=== PATIENT | male | born 1955 | race American Indian/Alaskan Native ===

== ENCOUNTER 2019-05-24 22:59 | Emergency (ER) | payer OTHER ==
[2019-05-25 00:33] LABS: Basophils # (Auto) 0.1 K/mm3 (0.0-0.1); Eosinophils # (Auto) 0.1 K/mm3 (0.0-0.4); Eosinophils % (Auto) 1.4 % (0.0-4.3); Hematocrit 39.6 % (35.5-45.6); Hemoglobin 13.2 gm/dl (11.8-15.2); Lymphocytes # (Auto) 1.5 K/mm3 (1.2-5.4); Lymphocytes % (Auto) 24.1 % (13.4-35.0); Mean Corpuscular HGB Conc 33 % (32-34); Mean Corpuscular Volume 93 fl (84-94); Monocytes # (Auto) 0.4 K/mm3 (0.0-0.8); Monocytes % (Auto) 7.4 % (0.0-7.3); Platelet Count 229 K/mm3 (140-440); Red Blood Count 4.28 M/mm3 (3.65-5.03); Red Cell Distribution Width 13.1 % (13.2-15.2)
[2019-05-25 00:53] LABS: Alanine Aminotransferase 8 units/L (7-56); BUN/Creatinine Ratio 14; Blood Urea Nitrogen 13 mg/dL (9-20); Calcium 9.2 mg/dL (8.4-10.2); Hemolysis Index 28
--- NOTE | 2019-05-25 01:14 | Emergency Department Report ---
HPI - General Chief Complaint: Dizziness Time Seen by Provider: 05/25/19 00:54 - HPI HPI: 63-year-old -[place] male presents to the emergency department with complaint of some abdominal pain, groin pain, difficulty with urination and bowel movements. The patient says that the difficulty urinating has been going on for the past 1-2 days and he says that he last urinated about 6 AM yesterday morning, . He says that he had a bowel movement earlier in the afternoon but it was not a satisfactory one. Patient complains of some swelling or distention towards the lower abdomen and groin that he says he has noticed in the past but it has gotten much worse over the past 24 hours. He has a past medical history of enlarged prostate and migraine headaches. He does not currently have a primary care physician. He has not taken anything for his symptoms prior to arrival. ED Past Medical Hx - Past Medical History Previous Medical History?: Yes Hx CVA: No Hx Congestive Heart Failure: No Hx Diabetes: No Hx Headaches / Migraines: Yes Hx Asthma: No Hx COPD: No Additional medical history: enlarged prostate, complex migraines without headache - Surgical History Past Surgical History?: Yes Additional Surgical History: Right Inguinal Hernia - Social History Smoking Status: Never Smoker Substance Use Type: None - Medications Home Medications: Home Medications Medication Instructions Recorded Confirmed Last Taken Type Aspirin EC [Aspirin Enteric Coated 81 mg PO QDAY 11/07/14 11/07/14 Unknown History TAB] Tamsulosin [Flomax] 0.4 mg PO QDAY #30 capsule 11/07/14 Unknown Rx Docusate Sodium [Colace] 100 mg PO BID PRN #30 capsule 02/07/15 Unknown Rx Magnesium Citrate [Citrate of 300 ml PO ONCE PRN #1 bottle 02/07/15 Unknown Rx Magnesia] SUMAtriptan SUCCINATE [Imitrex] 100 mg PO PRN PRN #10 tablet 02/07/15 Unknown Rx Ciprofloxacin HCl [Ciprofloxacin 500 mg PO Q12HR #14 tab 05/25/19 Unknown Rx TAB] ED Review of Systems ROS: Stated complaint: DIZZINESS TINGLING IN FINGERS BLADDER & BOWEL PA Other details as noted in HPI Comment: All other systems reviewed and negative Constitutional: denies: chills, fever Eyes: denies: eye pain, vision change ENT: denies: ear pain, throat pain Respiratory: denies: cough, shortness of breath Cardiovascular: denies: chest pain, palpitations Gastrointestinal: abdominal pain, constipation. denies: nausea, vomiting Genitourinary: other (difficulty urinating). denies: discharge Musculoskeletal: denies: back pain, arthralgia Skin: denies: rash, lesions Neurological: denies: headache, weakness Physical Exam - Physical Exam Vital Signs: Vital Signs 05/25/19 00:03 Temperature 98 F Pulse Rate 93 H Respiratory 18 Rate Blood Pressure 146/86 O2 Sat by Pulse 100 Oximetry Physical Exam: GENERAL: The patient is well-developed well-nourished. HENT: Normocephalic. Atraumatic. Patient has moist mucous membranes. EYES: Extraocular motions are intact. NECK: Supple. Trachea is midline. CHEST/LUNGS: Clear to auscultation. There is no respiratory distress noted. HEART/CARDIOVASCULAR: Regular. There is no tachycardia. There is no murmur. ABDOMEN: Abdomen is soft. Nondistended. There is lower abdominal and suprapubic tenderness to palpation. SKIN: Skin is warm and dry. NEURO: The patient is awake, alert, and oriented. The patient is cooperative. The patient has no focal neurologic deficits. The patient has normal speech. MUSCULOSKELETAL: There is no tenderness or deformity. There is no limitation range of motion. There is no evidence of acute injury. : There is a reducible left inguinal hernia. ED Course Vital Signs 05/25/19 00:03 Temperature 98 F Pulse Rate 93 H Respiratory 18 Rate Blood Pressure 146/86 O2 Sat by Pulse 100 Oximetry ED Medical Decision Making - Lab Data Result diagrams: 05/25/19 00:18 05/25/19 00:18 - Radiology Data Radiology results: report reviewed CT abdomen pelvis w con INDICATION / CLINICAL INFORMATION: LLQ abd pain, questionable hernia. TECHNIQUE: 100 cc of Omnipaque [address] was administered intraven[address] scans at this location are performed using CT dose reduction for ALARA by means of automated exposure control. COMPARISON: None available. FINDINGS: No free fluid is seen in the abdomen. Multiple small cysts are seen in the liver and kidneys. The spleen, pancreas, adrenal glands and great vessels are normal. The pelvis, no free fluid is seen. A Fontanez catheter is present in the bladder. Bladder wall may be thickened. No enlarged lymph nodes are identified. The appendix is not well visualized. There is a small left inguinal hernia containing only fat. IMPRESSION: 1. Fontanez catheter in the bladder. The bladder wall may be thickened 2. Small left inguinal hernia containing only fat 3. Multiple small cysts in the liver and kidneys - Medical Decision Making This patient presents to the emergency department with a complaint of some difficulty with urination and with bowel movements, lower abdominal discomfort and some type of swelling towards the left side of the groin. The patient appears to have a reducible left inguinal hernia. With the patient's complaint of some urinary retention, we obtained a bladder scan that showed greater than 1 L of urine within the bladder. A Fontanez catheter was placed and the patient has put out greater than 1 L of urine so far. Ultimately, he will be switched to a leg bag and will need to follow-up with urology regarding the urinary retention. The urine was sent for a urinalysis and to come back showing a significant urinary tract infection. The patient was given a dose of Rocephin here and will go home with a prescription for antibiotics for the urinary tract infection as well. His labs otherwise were unremarkable. CT scan of the abdomen and pelvis with IV contrast was done that shows a small left fat containing inguinal mariana ia. Otherwise there were no significant abnormalities found. His vital signs stable throughout his ED course. The patient has got some relief with the Fontanez catheter placement. He was discharged with the Fontanez catheter attached to a leg bag, a referral for urology and Gen. surgery, and the patient will return to the emergency Department with any worsening of his symptoms or any acute distress. Just prior to discharge, the patient decided that he did not want to go home with a Fontanez catheter in place and a leg bag. 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 We had a very long conversation regarding urinary retention and the reasons why it is important, or in his best interest, to keep the Fontanez catheter in place and use the leg bag. I explained that he may have a return of urinary retention and we may be unable to place another Fontanez catheter with his history of BPH. The same lecture that he is concerned about, could end up being derailed if he had significant urinary retention causing pain and a subsequent need to visit the emergency department. Despite all of the reasons given, the patient is awake, alert, oriented, able to make appropriate medical decisions for himself, and refuses to continue with the Fontanez catheter. - Differential Diagnosis UTI, bladder outlet obstruction, bowel obstruction, hernia Critical Care Time: No Critical care attestation.: If time is entered above; I have spent that time in minutes in the direct care of this critically ill patient, excluding procedure time. ED Disposition Clinical Impression: Urinary retention, Left inguinal hernia UTI (urinary tract infection) Qualifiers: Urinary tract infection type: acute cystitis Hematuria presence: without hematuria Qualified Code(s): N30.00 - Acute cystitis without hematuria Disposition: TO HOME OR SELFCARE Is pt being admited?: No Condition: Stable Instructions: Urinary Retention in Men (ED), Urinary Tract Infection in Men (ED), Fontanez Catheter Placement and Care (ED), Inguinal Hernia (ED), Urinary Leg Bag (GEN) Additional Instructions: Please follow-up with your primary care physician in the next few days. I am giving him a referral for a local urologist, Dr. Gaspar, to follow up regarding your urinary retention and the Fontanez catheter that was placed. I am giving him a referral for a local general surgeon, Dr. Oden, to follow up regarding your inguinal hernia. Return to the emergency Department with any worsening of your symptoms or any acute distress. Prescriptions: Ciprofloxacin HCl [Ciprofloxacin TAB] 500 mg PO Q12HR #14 tab Referrals: DENILSON GASPAR MD [Staff Physician] - 2-3 Days SERA ODEN MD [Staff Physician] - 2-3 Days Forms: Work/School Release Form(ED) Time of Disposition: 04:57
[2019-05-25 02:22] LABS: Bilirubin,Urine NEG (Negative); Blood,Urine MOD (Negative); Color,Urine Yellow (Yellow); Urobilinogen,Urine < 2.0 mg/dL (<2.0)
[2019-05-25 02:25] LABS: WBC,Urine > 182.0 /HPF (0.0-6.0)
[2019-05-25] MEDS ORDERED: ROCEPHIN/NS 1 GM/50 ML 1 GM/50 ML BAG IV ONE (03:02)
--- NOTE | 2019-05-25 03:31 | Cat Scan Report ---
CT abdomen pelvis w con INDICATION / CLINICAL INFORMATION: LLQ abd pain, questionable hernia. TECHNIQUE: 100 cc of Omnipaque [address] was [address] scans at this location are performed us ing CT dose reduction for PONCERA by means of automated exposure control. COMPARISON: None available. FINDINGS: No free fluid is seen in the abdomen. Multiple small cysts are seen in the liver and kidneys. The spl een, pancreas, adrenal glands and great vessels are normal. The pelvis, no free fluid is seen. A Fontanez catheter is present in the bladder. Bladder wall may be th ickened. No enlarged lymph nodes are identified. The appendix is not well visualized. There is a smal l left inguinal hernia containing only fat. IMPRESSION: 1. Fontanez catheter in the bladder. The bladder wall may be thickened 2. Small left inguinal hernia containing only fat 3. Multiple small cysts in the liver and kidneys Signer Name: Kale Saucedo MD FACR Signed: 05/25/2019 3:26 AM Workstation Name: [id number]
[2019-05-25 04:31] VITALS: BP 139/95
== END 2019-05-25 05:35 | disposition home or self-care (01) ==
LOC: ED 22:59
DX: K40.90 Unilateral inguinal hernia, without obstruction or gangrene, not specified as recurrent (principal); R33.9 Retention of urine, unspecified; G43.909 Migraine, unspecified, not intractable, without status migrainosus; Z87.438 Personal history of other diseases of male genital organs; Z79.899 Other long term (current) drug therapy
CPT/HCPCS: 36415; 51702; 74177; 80053; 81001; 85025; 96365; 99284; J0696; Q9967

== ENCOUNTER 2019-12-16 04:05 | Emergency (ER) | payer OTHER ==
[2019-12-16 04:49] LABS: Bilirubin,Urine NEG (Negative); Blood,Urine NEG (Negative); Color,Urine Amber (Yellow); Mucus,Urine FEW /HPF; Protein,Urine <15 mg/dL mg/dL (Negative); Urobilinogen,Urine < 2.0 mg/dL (<2.0)
[2019-12-16 05:12] LABS: Basophils # (Auto) 0.1 K/mm3 (0.0-0.1); Basophils % (Auto) 1.2 % (0.0-1.8); Eosinophils # (Auto) 0.2 K/mm3 (0.0-0.4); Eosinophils % (Auto) 3.1 % (0.0-4.3); Hematocrit 37.8 % (35.5-45.6); Hemoglobin 12.5 gm/dl (11.8-15.2); Lymphocytes # (Auto) 1.4 K/mm3 (1.2-5.4); Mean Corpuscular HGB Conc 33 % (32-34); Mean Corpuscular Volume 92 fl (84-94); Monocytes # (Auto) 0.5 K/mm3 (0.0-0.8); Monocytes % (Auto) 8.7 % (0.0-7.3); Platelet Count 210 K/mm3 (140-440); Red Blood Count 4.13 M/mm3 (3.65-5.03); Red Cell Distribution Width 13.3 % (13.2-15.2)
[2019-12-16 05:35] LABS: Alanine Aminotransferase 9 units/L (7-56); BUN/Creatinine Ratio 19; Blood Urea Nitrogen 15 mg/dL (9-20); Calcium 9.1 mg/dL (8.4-10.2); Hemolysis Index 10
--- NOTE | 2019-12-16 08:23 | Emergency Department Report ---
ED Abdominal Pain HPI - General Chief Complaint: Abdominal Pain Stated Complaint: ABD PAIN/CONSTIPATION Time Seen by Provider: 12/16/19 06:47 Source: patient Mode of arrival: Ambulatory Limitations: No Limitations - History of Present Illness Initial Comments: 64-year-old man with multiple complaints. He is resting comfortably. He seems to lack urgency. He states that "both my kidneys are hurting. He states he saw a squishy lump in his left inguinal area which he pushed back in. He also states that he has some slight rectal bleeding 2 days ago. Patient states that he had a colonoscopy maybe 5 or 6 years ago which was negative. He has a family history strongly positive for colon cancer. He has no personal history of that or medical problems. He is not taking any current medications. He has no local physician. He is requesting a "3-day work excuse". MD Complaint: flank pain -: Gradual, hour(s) Location: bilateral flank Radiation: none Migration to: no migration Severity: moderate (Appears very comfortable) Quality: aching Consistency: intermittent Improves With: nothing Worsens With: nothing Associated Symptoms: denies other symptoms (Except as above indicated) - Related Data Home Medications Medication Instructions Recorded Confirmed Last Taken Aspirin EC [Aspirin Enteric Coated 81 mg PO QDAY 11/07/14 11/07/14 Unknown TAB] Previous Rx's Medication Instructions Recorded Last Taken Type Tamsulosin [Flomax] 0.4 mg PO QDAY #30 capsule 11/07/14 Unknown Rx Docusate Sodium [Colace] 100 mg PO BID PRN #30 capsule 02/07/15 Unknown Rx Magnesium Citrate [Citrate of 300 ml PO ONCE PRN #1 bottle 02/07/15 Unknown Rx Magnesia] SUMAtriptan SUCCINATE [Imitrex] 100 mg PO PRN PRN #10 tablet 02/07/15 Unknown Rx Ciprofloxacin HCl [Ciprofloxacin 500 mg PO Q12HR #14 tab 05/25/19 Unknown Rx TAB] bisacodyL [Dulcolax suppos] 10 mg TX ONCE #4 supp.rect 12/16/19 Unknown Rx traMADoL [Ultram 50 MG tab] 50 mg PO Q6HR PRN #7 tablet 12/16/19 Unknown Rx Allergies Allergy/AdvReac Type Severity Reaction Status Date / Time No Known Allergies Allergy Verified 11/06/14 22:16 ED Review of Systems ROS: Stated complaint: ABD PAIN/CONSTIPATION Other details as noted in HPI Constitutional: denies: chills, fever Eyes: denies: eye pain, eye discharge, vision change ENT: denies: ear pain, throat pain Respiratory: denies: cough, shortness of breath, wheezing Cardiovascular: denies: chest pain, palpitations Endocrine: no symptoms reported Gastrointestinal: as per HPI, abdominal pain. denies: nausea, diarrhea Genitourinary: denies: urgency, dysuria Musculoskeletal: as per HPI, back pain. denies: joint swelling, arthralgia Skin: denies: rash, lesions Neurological: denies: headache, weakness, paresthesias Psychiatric: denies: anxiety, depression Hematological/Lymphatic: denies: easy bleeding, easy bruising ED Past Medical Hx - Past Medical History Previous Medical History?: Yes Hx CVA: No Hx Congestive Heart Failure: No Hx Diabetes: No Hx Headaches / Migraines: Yes Hx Asthma: No Hx COPD: No Additional medical history: enlarged prostate, complex migraines without headache - Surgical History Past Surgical History?: Yes Additional Surgical History: Right Inguinal Hernia, toes - Social History Smoking Status: Never Smoker Substance Use Type: None - Medications Home Medications: Home Medications Medication Instructions Recorded Confirmed Last Taken Type Aspirin EC [Aspirin Enteric Coated 81 mg PO QDAY 11/07/14 11/07/14 Unknown History TAB] Tamsulosin [Flomax] 0.4 mg PO QDAY #30 capsule 11/07/14 Unknown Rx Docusate Sodium [Colace] 100 mg PO BID PRN #30 capsule 02/07/15 Unknown Rx Magnesium Citrate [Citrate of 300 ml PO ONCE PRN #1 bottle 02/07/15 Unknown Rx Magnesia] SUMAtriptan SUCCINATE [Imitrex] 100 mg PO PRN PRN #10 tablet 02/07/15 Unknown Rx Ciprofloxacin HCl [Ciprofloxacin 500 mg PO Q12HR #14 tab 05/25/19 Unknown Rx TAB] bisacodyL [Dulcolax suppos] 10 mg TX ONCE #4 supp.rect 12/16/19 Unknown Rx traMADoL [Ultram 50 MG tab] 50 mg PO Q6HR PRN #7 tablet 12/16/19 Unknown Rx ED Physical Exam - General Limitations: No Limitations General appearance: alert, in no apparent distress - Head Head exam: Present: atraumatic, normocephalic - Eye Eye exam: Present: normal appearance. Absent: scleral icterus - ENT ENT exam: Present: mucous membranes moist - Neck Neck exam: Present: normal inspection - Respiratory Respiratory exam: Present: normal lung sounds bilaterally. Absent: respiratory distress - Cardiovascular Cardiovascular Exam: Present: regular rate, normal rhythm. Absent: systolic murmur, diastolic murmur, rubs, gallop - GI/Abdominal GI/Abdominal exam: Present: soft, normal bowel sounds. Absent: distended, tenderness, guarding, rebound, rigid, organomegaly, mass, bruit, pulsatile mass, hernia (I did not find a hernia in the left inguinal ring) - Rectal Rectal exam: Present: normal inspection, normal rectal tone, heme (-) stool - Extremities Exam Extremities exam: Present: normal inspection - Back Exam Back exam: Present: normal inspection - Neurological Exam Neurological exam: Present: alert, oriented X3 - Psychiatric Psychiatric exam: Present: normal affect, normal mood - Skin Skin exam: Present: warm, dry, intact, normal color. Absent: rash ED Course Vital Signs 12/16/19 12/16/19 12/16/19 04:09 07:22 07:26 Temperature 97.4 F L 97.7 F Pulse Rate 96 H 81 Respiratory 18 17 Rate Blood Pressure 132/81 Blood Pressure 117/77 [Right] O2 Sat by Pulse 99 100 Oximetry - Reevaluation(s) Reevaluation #1: Patient's laboratory screening is reasonably normal. He is appropriate for outpatient follow-up. He will be referred. 12/16/19 08:48 ED Medical Decision Making - Lab Data Result diagrams: 12/16/19 04:51 12/16/19 04:51 Laboratory Results - last 24 hr 12/16/19 12/16/19 12/16/19 04:51 04:51 Unknown WBC 5.8 RBC 4.13 Hgb 12.5 Hct 37.8 MCV 92 MCH 30 MCHC 33 RDW 13.3 Plt Count 210 Lymph % (Auto) 24.0 Maury % (Auto) 8.7 H Eos % (Auto) 3.1 Baso % (Auto) 1.2 Lymph # 1.4 Maury # 0.5 Eos # 0.2 Baso # 0.1 Seg Neutrophils % 63.0 Seg Neutrophils # 3.6 Sodium 142 Potassium 5.1 H Chloride 103.5 Carbon Dioxide 26 Anion Gap 18 BUN 15 Creatinine 0.8 Estimated GFR > 60 BUN/Creatinine Ratio 19 Glucose 97 Calcium 9.1 Total Bilirubin 0.30 AST 15 ALT 9 Alkaline Phosphatase 69 Total Protein 7.1 Albumin 4.0 Albumin/Globulin Ratio 1.3 Urine Color Jeanne Urine Turbidity Clear Urine pH 6.0 Ur Specific [place] 1.021 Urine Protein <15 mg/dl Urine Glucose (UA) Neg Urine Ketones Neg Urine Blood Neg Urine Nitrite Neg Urine Bilirubin Neg Urine Urobilinogen < 2.0 Ur Leukocyte Esterase Neg Urine WBC (Auto) 2.0 Urine RBC (Auto) 2.0 U Epithel Cells (Auto) < 1.0 Urine Mucus Few Critical care attestation.: If time is entered above; I have spent that time in minutes in the direct care of this critically ill patient, excluding procedure time. ED Disposition Clinical Impression: Flank pain Abdominal pain Qualifiers: Abdominal location: left lower quadrant Qualified Code(s): R10.32 - Left lower quadrant pain Disposition: TO HOME OR SELFCARE Is pt being admited?: No Does the pt Need Aspirin: No Condition: Stable Instructions: Flank Pain (ED), Abdominal Pain (ED) Additional Instructions: Return any acute change or problem. I would recommend further evaluation at the [facility]. Call [facility] specialist for appointment. Prescriptions: bisacodyL [Dulcolax suppos] 10 mg TX ONCE #4 supp.rect traMADoL [Ultram 50 MG tab] 50 mg PO Q6HR PRN #7 tablet PRN Reason: Pain Referrals: [facility] [Provider Group] - 3-5 Days [facility] [Provider Group] - 3-5 Days Forms: Work/School Release Form(ED) Time of Disposition: 08:49
[2019-12-16] MEDS ORDERED: traMADol 50 MG TAB PO ONE (09:48)
[2019-12-16 11:30] VITALS: BP 111/69
== END 2019-12-16 10:10 | disposition home or self-care (01) ==
LOC: ED 04:05
DX: R10.9 Unspecified abdominal pain (principal); K59.00 Constipation, unspecified; Z79.82 Long term (current) use of aspirin; Z79.899 Other long term (current) drug therapy; G43.909 Migraine, unspecified, not intractable, without status migrainosus; Z98.890 Other specified postprocedural states
CPT/HCPCS: 36415; 80053; 81001; 82271; 85025

== ENCOUNTER 2021-11-22 11:34 | Emergency (ER) | payer MEDICARE, OTHER ==
[2021-11-22 11:53] VITALS: BP 143/81
[2021-11-22] MEDS ORDERED: HYDROcodone/ACETAMINOPHEN 5-325 MG TAB PO ONE (12:21)
[2021-11-22] MEDS ORDERED: KETOROLAC 30 MG/1 ML INJ IM ONE (12:21)
[2021-11-22] MEDS ORDERED: ONDANSETRON 4 MG ODT TAB PO ONE (12:22)
--- NOTE | 2021-11-22 12:25 | Emergency Department Report ---
ED Abdominal Pain HPI - General Chief Complaint: Headache Stated Complaint: ABD PAIN PUI?: No Time Seen by Provider: 11/22/21 11:58 Source: patient Mode of arrival: Ambulatory Limitations: No Limitations - History of Present Illness Initial Comments: Chief complaint: Headache, bilateral flank pain, dysuria HPI: This is a 66-year-old male with history of migraine headache, BPH who presents with headache bilateral flank pain and burning with urination. Gradual onset of headache this morning. Global. No photophobia. No nausea vomiting. He has had similar headaches in the past. [id number] headache medication provided moderate relief. He has severe bilateral flank pain 8 out of 10 dull ache. He also has dysuria. He denies fever chills. He denies chest pain. Denies cough. He does not take medication for BPH. According to electronic medical record, patient has had extensive neurological work-up including MRI, MRA, CT head. His diagnosis atypical migraine. I reviewed neurological consultation documentation by Dr. Brady. Complaint: flank pain -: Gradual, days(s) (2 days of flank pain) Location: L flank, R flank, bilateral flank Severity: moderate Severity scale (0 -10): 7 Quality: aching, dull Consistency: constant Improves With: nothing Worsens With: nothing Associated Symptoms: other (Headache) - Related Data Home Medications Medication Instructions Recorded Confirmed Last Taken Aspirin EC [Aspirin Enteric Coated 81 mg PO QDAY 11/07/14 11/07/14 Unknown TAB] Previous Rx's Medication Instructions Recorded Last Taken Type Tamsulosin [Flomax] 0.4 mg PO QDAY #30 capsule 11/07/14 Unknown Rx Docusate Sodium [Colace] 100 mg PO BID PRN #30 capsule 02/07/15 Unknown Rx Magnesium Citrate [Citrate of 300 ml PO ONCE PRN #1 bottle 02/07/15 Unknown Rx Magnesia] SUMAtriptan SUCCINATE [Imitrex] 100 mg PO PRN PRN #10 tablet 02/07/15 Unknown Rx Ciprofloxacin HCl [Ciprofloxacin 500 mg PO Q12HR #14 tab 05/25/19 Unknown Rx TAB] bisacodyL [Dulcolax suppos] 10 mg [place] ONCE #4 supp.rect 12/16/19 Unknown Rx traMADoL [Ultram 50 MG tab] 50 mg PO Q6HR PRN #7 tablet 12/16/19 Unknown Rx Nitrofurantoin Sargent/M-Cryst 100 mg PO Q12HR 10 Days #20 capsule 11/22/21 Unknown Rx [Macrobid CAP] Allergies Allergy/AdvReac Type Severity Reaction Status Date / Time No Known Allergies Allergy Verified 11/06/14 22:16 ED Review of Systems ROS: Stated complaint: ABD PAIN Other details as noted in HPI Comment: All other systems reviewed and negative Constitutional: denies: chills, fever, malaise Respiratory: denies: cough, shortness of breath Gastrointestinal: denies: abdominal pain, nausea, vomiting Genitourinary: dysuria Musculoskeletal: back pain ED Past Medical Hx - Past Medical History Previous Medical History?: Yes Hx CVA: No Hx Congestive Heart Failure: No Hx Diabetes: No Hx Headaches / Migraines: Yes Hx Asthma: No Hx COPD: No Additional medical history: enlarged prostate, complex migraines without headache - Surgical History Past Surgical History?: Yes Additional Surgical History: Right Inguinal Hernia, toes - Social History Smoking Status: Never Smoker Substance Use Type: None - Medications Home Medications: Home Medications Medication Instructions Recorded Confirmed Last Taken Type Aspirin EC [Aspirin Enteric Coated 81 mg PO QDAY 11/07/14 11/07/14 Unknown History TAB] Tamsulosin [Flomax] 0.4 mg PO QDAY #30 capsule 11/07/14 Unknown Rx Docusate Sodium [Colace] 100 mg PO BID PRN #30 capsule 02/07/15 Unknown Rx Magnesium Citrate [Citrate of 300 ml PO ONCE PRN #1 bottle 02/07/15 Unknown Rx Magnesia] SUMAtriptan SUCCINATE [Imitrex] 100 mg PO PRN PRN #10 tablet 02/07/15 Unknown Rx Ciprofloxacin HCl [Ciprofloxacin 500 mg PO Q12HR #14 tab 05/25/19 Unknown Rx TAB] bisacodyL [Dulcolax suppos] 10 mg [place] ONCE #4 supp.rect 12/16/19 Unknown Rx traMADoL [Ultram 50 MG tab] 50 mg PO Q6HR PRN #7 tablet 12/16/19 Unknown Rx Nitrofurantoin Sargent/M-Cryst 100 mg PO Q12HR 10 Days #20 capsule 11/22/21 Unknown Rx [Macrobid CAP] ED Physical Exam - General Limitations: No Limitations General appearance: alert, in no apparent distress - Head Head exam: Present: atraumatic, normocephalic - Eye Eye exam: Present: normal appearance - ENT ENT exam: Present: mucous membranes moist - Neck Neck exam: Present: normal inspection - Respiratory Respiratory exam: Present: normal lung sounds bilaterally. Absent: respiratory distress, wheezes, rales, rhonchi - Cardiovascular Cardiovascular Exam: Present: regular rate, normal rhythm, normal heart sounds. Absent: systolic murmur, diastolic murmur, rubs, gallop - GI/Abdominal GI/Abdominal exam: Present: soft, normal bowel sounds. Absent: distended, tenderness - Rectal Rectal exam: Present: deferred - Extremities Exam Extremities exam: Present: normal inspection - Back Exam Back exam: Present: normal inspection, full ROM. Absent: CVA tenderness (R), CVA tenderness (L) - Neurological Exam Neurological exam: Present: alert, oriented X3 - Psychiatric Psychiatric exam: Present: normal affect, normal mood - Skin Skin exam: Present: warm, dry, intact, normal color. Absent: rash ED Course Vital Signs 11/22/21 11:52 Temperature 98 F Pulse Rate 88 Respiratory 20 Rate Blood Pressure 143/81 [Right] O2 Sat by Pulse 96 Oximetry ED Medical Decision Making - Radiology Data Radiology results: report reviewed Patient Name: MIKEL FARRELL Gender: Male Date of : 1955 Referring Provider: LOYDA MILLARD Organization: 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 FINDINGS: Sclerosis in the right posterior elements of L1 is stable. No new bony lesions are identified. Lung bases are clear. No pneumoperitoneum is seen. Liver is enlarged and has a length of 20 cm. Multiple small hypodensities are again seen throughout the liver which probably represent cysts and are not significantly changed. Spleen, adrenals, and pancreas show no abnormalities. Gallbladder appears to be prominently contracted but shows no obvious calculi or acute abnormalities. No biliary dilatation is seen. No lymphadenopathy is noted. No free fluid is seen. Small cysts are again seen in the liver bilaterally. No urinary tract calculi or obstructive changes are seen. The urinary bladder is not well distended but appears to again show prominent wall thickening similar to the prior examination. Prostate is mildly enlarged. Seminal vesicles are symmetric. No inflammatory changes are seen. No other abdominal or pelvic masses are noted. No evidence of bowel obstruction is seen. Multiple fluid-filled small bowel loops are seen without obvious wall thickening. IMPRESSION: 1. No definite acute abnormality is seen though the small bowel pattern might suggest mild enteritis 2. Hepatomegaly 3. Prominent wall thickening is again seen in the bladder but this is similar to study in 2019. No upper urinary obstructive changes are obvious. Signer Name: Des Lester MD Signed: 11/22/2021 12:43 PM Workstation Name: [id number] - Medical Decision Making 1. Migraine headache: Treated with ketorolac and [place]. Headache is typical for patient. No red flags such as fever, sudden onset, neurological deficit. 2. Cystitis confirmed by CT and UA. Rx: nitrofurantoin. No evidence of ureteral stones or pyelonephritis. Critical care attestation.: If time is entered above; I have spent that time in minutes in the direct care of this critically ill patient, excluding procedure time. ED Disposition Clinical Impression: Migraine headache, Urinary tract infection Disposition: 01 HOME / SELF CARE / HOMELESS Is pt being admited?: No Does the pt Need Aspirin: No Condition: Stable Instructions: Recurrent Migraine Headache, [id number], Urinary Tract Infection, Adult, [id number] Prescriptions: Nitrofurantoin Sargent/M-Cryst [Macrobid CAP] 100 mg PO Q12HR 10 Days #20 capsule Referrals: ARAMIS MUSTAFA MD [Staff Physician] - 3-5 Days
[2021-11-22 12:54] LABS: Bacteria,Urine 4+ /HPF (Negative); Bilirubin,Urine NEG (Negative); Blood,Urine NEG (Negative); Color,Urine Amber (Yellow); Mucus,Urine 3+ /HPF; Urobilinogen,Urine < 2.0 mg/dL (<2.0)
--- NOTE | 2021-11-22 13:47 | Cat Scan Report ---
CT ABDOMEN AND PELVIS WITHOUT CONTRAST INDICATION: bilateral flank pain CONTRAST: Without IV COMPARISON: 05/25/[address] scans at this location are performed using CT dose reduction for ALARA by means of automated e xposure control. FINDINGS: Sclerosis in the right posterior elements of L1 is stable. No new bony lesions are identifi ed. Lung bases are clear. No pneumoperitoneum is seen. Liver is enlarged and has a length of 20 cm. Multiple small hypodensitie s are again seen throughout the liver which probably represent cysts and are not significantly change d. Spleen, adrenals, and pancreas show no abnormalities. Gallbladder appears to be prominently contra cted but shows no obvious calculi or acute abnormalities. No biliary dilatation is seen. No lymphaden opathy is noted. No free fluid is seen. Small cysts are again seen in the liver bilaterally. No urinary tract calculi or obstructive changes are seen. The urinary bladder is not well distended but appears to again show prominent wall thickeni ng similar to the prior examination. Prostate is mildly enlarged. Seminal vesicles are symmetric. No inflammatory changes are seen. No other abdominal or pelvic masses are noted. No evidence of bowel obstruction is seen. Multiple fluid-filled small bowel loops are seen without obvious wall thickenin g. IMPRESSION: 1. No definite acute abnormality is seen though the small bowel pattern might suggest mild enteritis 2. Hepatomegaly 3. Prominent wall thickening is again seen in the bladder but this is similar to study in 2019. No up per urinary obstructive changes are obvious. Signer Name: Des Lester MD Signed: 11/22/2021 1:43 PM Workstation Name: [id number]
== END 2021-11-22 14:38 | disposition home or self-care (01) ==
LOC: ED 11:34
DX: G43.909 Migraine, unspecified, not intractable, without status migrainosus (principal); N39.0 Urinary tract infection, site not specified; Z79.899 Other long term (current) drug therapy; Z98.890 Other specified postprocedural states
CPT/HCPCS: 74176; 81001; 87086; 96372; 99284; J1885; J3490; Q0162

== ENCOUNTER 2021-12-04 23:21 | Emergency (ER) | payer MEDICARE ==
[2021-12-05] MEDS ORDERED: HYDROcodone/ACETAMINOPHEN 5-325 MG TAB PO ONE (03:08)
--- NOTE | 2021-12-05 03:27 | Emergency Department Report ---
ED General Adult HPI - General Chief complaint: Urogenital-Male Stated complaint: KIDNEY/PELVIC PAIN Time Seen by Provider: 12/05/21 02:58 Source: patient Mode of arrival: Ambulatory Limitations: No Limitations - History of Present Illness Initial comments: Patient presented with a 2 to 3-day history of worsening flank pain. This is bilateral. He reports having some suprapubic pain and dysuria. That started more today. Patient states that the pain has worsened over the last day. He came here for evaluation treatment because of this. The flank pain is constant and aching. It does not radiate. The suprapubic pain and dysuria is also constant with urination. Tonight, he thinks there might have been some hematuria. Patient has no penile discharge. He has not been sexually active in 7 years. He is not concerned for sexually transmitted infection. Patient has no recent travel or trauma. He has had no vomiting or diarrhea. Severity scale (0 -10): 6 - Related Data Home Medications Medication Instructions Recorded Confirmed Last Taken Aspirin EC [Aspirin Enteric Coated 81 mg PO QDAY 11/07/14 11/07/14 Unknown TAB] Previous Rx's Medication Instructions Recorded Last Taken Type Tamsulosin [Flomax] 0.4 mg PO QDAY #30 capsule 11/07/14 Unknown Rx Docusate Sodium [Colace] 100 mg PO BID PRN #30 capsule 02/07/15 Unknown Rx Magnesium Citrate [Citrate of 300 ml PO ONCE PRN #1 bottle 02/07/15 Unknown Rx Magnesia] SUMAtriptan SUCCINATE [Imitrex] 100 mg PO PRN PRN #10 tablet 02/07/15 Unknown Rx bisacodyL [Dulcolax suppos] 10 mg [place] ONCE #4 supp.rect 12/16/19 Unknown Rx cephALEXin [Keflex] 500 mg PO Q6HR #28 capsule 12/05/21 Unknown Rx traMADoL [Ultram 50 MG tab] 50 mg PO Q6HR PRN #12 tablet 12/05/21 Unknown Rx Allergies Allergy/AdvReac Type Severity Reaction Status Date / Time No Known Allergies Allergy Verified 11/06/14 22:16 ED Review of Systems ROS: Stated complaint: KIDNEY/PELVIC PAIN Other details as noted in HPI Comment: All other systems reviewed and negative Constitutional: denies: fever Eyes: denies: eye pain ENT: denies: throat pain Respiratory: denies: cough Cardiovascular: denies: chest pain Endocrine: denies: unexplained weight loss Gastrointestinal: as per HPI Genitourinary: as per HPI Musculoskeletal: as per HPI Skin: denies: rash Neurological: denies: headache Hematological/Lymphatic: denies: easy bruising ED Past Medical Hx - Past Medical History Previous Medical History?: Yes Hx CVA: No Hx Congestive Heart Failure: No Hx Diabetes: No Hx Headaches / Migraines: Yes Hx Asthma: No Hx COPD: No Additional medical history: enlarged prostate, complex migraines without headache - Surgical History Past Surgical History?: Yes Additional Surgical History: Right Inguinal Hernia, toes - Family History Family history: other (Colon cancer. Negative for kidney stones) - Social History Smoking Status: Never Smoker Substance Use Type: None - Medications Home Medications: Home Medications Medication Instructions Recorded Confirmed Last Taken Type Aspirin EC [Aspirin Enteric Coated 81 mg PO QDAY 11/07/14 11/07/14 Unknown Hist ory TAB] Tamsulosin [Flomax] 0.4 mg PO QDAY #30 capsule 11/07/14 Unknown Rx Docusate Sodium [Colace] 100 mg PO BID PRN #30 capsule 02/07/15 Unknown Rx Magnesium Citrate [Citrate of 300 ml PO ONCE PRN #1 bottle 02/07/15 Unknown Rx Magnesia] SUMAtriptan SUCCINATE [Imitrex] 100 mg PO PRN PRN #10 tablet 02/07/15 Unknown Rx bisacodyL [Dulcolax suppos] 10 mg [place] ONCE #4 supp.rect 12/16/19 Unknown Rx cephALEXin [Keflex] 500 mg PO Q6HR #28 capsule 12/05/21 Unknown Rx traMADoL [Ultram 50 MG tab] 50 mg PO Q6HR PRN #12 tablet 12/05/21 Unknown Rx ED Physical Exam - General Limitations: No Limitations, Other (Pulse ox noted and normal) General appearance: alert, in no apparent distress - Head Head exam: Present: atraumatic, normocephalic - Eye Eye exam: Present: normal appearance, EOMI. Absent: scleral icterus - ENT ENT exam: Present: normal orophraynx, normal external ear exam - Neck Neck exam: Present: normal inspection. Absent: meningismus - Respiratory Respiratory exam: Present: normal lung sounds bilaterally. Absent: respiratory distress - Cardiovascular Cardiovascular Exam: Present: regular rate, normal rhythm - GI/Abdominal GI/Abdominal exam: Present: soft, tenderness (Suprapubic). Absent: guarding, rebound, pulsatile mass - Extremities Exam Extremities exam: Present: normal capillary refill - Back Exam Back exam: Present: CVA tenderness (R) (Mild), CVA tenderness (L) (Mild) - Neurological Exam Neurological exam: Present: alert, oriented X3, CN II-XII intact, normal gait. Absent: motor sensory deficit - Psychiatric Psychiatric exam: Present: normal affect, normal mood - Skin Skin exam: Present: warm, dry ED Course Vital Signs 12/05/21 12/05/21 02:47 03:24 Temperature 97.6 F Pulse Rate 83 Respiratory 18 14 Rate Blood Pressure 148/80 O2 Sat by Pulse 97 Oximetry - Reevaluation(s) Reevaluation #1: 12/05/21 03:27 UA and x-ray were ordered. Old records reviewed. Reevaluation #2: 12/05/21 04:41 UA was noted. KUB had been reviewed. Labs and CT have been added on at this time. Reevaluation #3: 12/05/21 05:[address] of been noted. Etiology for the patient's hematuria and pain is not clear. He does not have obvious stone. There is bladder wall thickening which may be causing some problems. He will be referred to urology for outpatient cystoscopy. ED Medical Decision Making - Lab Data Result diagrams: 12/05/21 05:02 12/05/21 05:02 - Radiology Data Radiology results: report reviewed - Medical Decision Making Patient presents with flank pain and suprapubic discomfort. Etiology for this is not known. He does not have obvious pyelonephritis based on his presen tation. Renal function is normal. He does have significant hematuria of unclear etiology. CT failed to demonstrate stones but he does have evidence of bladder wall thickening. Whether there is a true interstitial cystitis, some sort of bladder cancer or tumor, or some other inflammatory process is not known. Patient was started empirically on antibiotics for a possible resistant urinary tract infection given his recent presentation. He was referred to urology for outpatient follow-up and endoscopy. Critical Care Time: No Critical care attestation.: If time is entered above; I have spent that time in minutes in the direct care of this critically ill patient, excluding procedure time. ED Disposition Clinical Impression: Bilateral flank pain, Dysuria, Gross hematuria Disposition: HOME / SELF CARE / HOMELESS Is pt being admited?: No Condition: Stable Instructions: Dysuria, Flank Pain, Adult, [id number], Ureteroscopy, Pain Without a Known Cause, Hematuria, Adult Additional Instructions: Drink plenty of fluids. Return for problems. Take medications as prescribed. Follow-up with your regular doctor or the referral physician for consideration of urologic referral. Prescriptions: cephALEXin [Keflex] 500 mg PO Q6HR #28 capsule traMADoL [Ultram 50 MG tab] 50 mg PO Q6HR PRN #12 tablet PRN Reason: Pain Referrals: DARIO SYED MD [Primary Care Provider] - 3-5 Days KE WHITE MD [Staff Physician] - 3-5 Days
--- NOTE | 2021-12-05 03:53 | XRay Report ---
XR abdomen 1V ap INDICATION / CLINICAL INFORMATION: FLANK PAIN/HEMATURIA. COMPARISON: CT abdomen and pelvis 11/22/2021 Supine AP abdomen FINDINGS: TUBES / LINES: None. BOWEL GAS PATTERN: No significant abnormality. FREE AIR / EXTRALUMINAL GAS: None seen. ADDITIONAL FINDINGS: Renal contours are not well visualized secondary to bowel gas. No obvious nephro lithiasis/ureterolithiasis. IMPRESSION: 1. No acute findings. Signer Name: Blayne Stacy II, MD Signed: 12/05/2021 3:48 AM Workstation Name: [id number]
[2021-12-05 04:22] LABS: Bacteria,Urine 1+ /HPF (Negative); Bilirubin,Urine NEG (Negative); Blood,Urine MOD (Negative); Color,Urine Yellow (Yellow); Mucus,Urine FEW /HPF; Protein,Urine <15 mg/dL mg/dL (Negative); Urobilinogen,Urine < 2.0 mg/dL (<2.0)
[2021-12-05 04:39] LABS: RBC,Urine > 182.0 /HPF (0.0-6.0)
--- NOTE | 2021-12-05 05:11 | Cat Scan Report ---
CT ABDOMEN AND PELVIS WITHOUT CONTRAST INDICATION / CLINICAL INFORMATION: Flank pain with hematuria. TECHNIQUE: Axial CT images were obtained through the abdomen and pelvis without IV contrast. All CT scans at this location are performed using CT dose reduction for ALARA by means of automated exposure control. COMPARISON: CT abdomen and pelvis 11/22/2021; CT of abdomen and pelvis 05/25/2019. FINDINGS: LOWER CHEST: No significant abnormality of the imaged chest. LIVER: Numerous focal hypodense lesions throughout the liver these demonstrate little change in size or number since comparison from 2019. Thought to reflect hepatic cysts. GALLBLADDER: Contracted BILE DUCTS: Not well-visualized, bile duct is enlarged measuring 7.4 mm. SPLEEN: No significant abnormality. PANCREAS: No significant abnormality. ADRENALS: No significant abnormality. RIGHT KIDNEY / URETER: 1.2 cm cyst upper pole unchanged. Small exophytic cyst lateral cortex mid to l ower right kidney unchanged. LEFT KIDNEY / URETER: Posterior cortical left renal cyst unchanged. STOMACH / DUODENUM / SMALL BOWEL: No significant abnormality. COLON: Moderate stool throughout the large bowel. APPENDIX: No significant abnormality. PERITONEUM: No free air or free fluid are present within the abdomen or pelvis. LYMPH NODES: No significant adenopathy. AORTA / ARTERIES: No significant abnormality. IVC / VEINS: No significant abnormality. URINARY BLADDER: The bladder demonstrates diffuse wall thickening with asymmetric thickening of the p osterolateral bladder wall and right as well as indentation of the bladder base from prostate. REPRODUCTIVE ORGANS: Prostate is borderline in size measuring 5.4 cm. ADDITIONAL ABDOMINAL/PELVIC FINDINGS: None. SKELETAL SYSTEM: No significant abnormality. IMPRESSION: 1. Diffuse bladder wall thickening stable compared to the most recent study possibly improved since 2 019. Differential considerations could include chronic bladder outlet obstruction as well as intersti tial cystitis, infectious cystitis, neoplasm not entirely excluded. 2. Stable appearance of multiple small renal cysts. No urolithiasis. 3. No other acute findings within the pelvis. Signer Name: Blayne Stacy II, MD Signed: 12/05/2021 5:07 AM Workstation Name: [id number]
[2021-12-05 05:27] LABS: Hematocrit 36.7 % (35.5-45.6); Hemoglobin 11.9 gm/dl (11.8-15.2); Mean Corpuscular HGB Conc 33 % (32-34); Mean Corpuscular Volume 93 fl (84-94); Platelet Count 284 K/mm3 (140-440); Red Blood Count 3.97 M/mm3 (3.65-5.03); Red Cell Distribution Width 13.1 % (13.2-15.2)
[2021-12-05 05:32] LABS: BUN/Creatinine Ratio 27; Blood Urea Nitrogen 24 mg/dL (9-20); Hemolysis Index 12
[2021-12-05 05:51] VITALS: BP 143/88
== END 2021-12-05 05:55 | disposition home or self-care (01) ==
LOC: ED 23:21
DX: R10.30 Lower abdominal pain, unspecified (principal); R30.0 Dysuria; R31.9 Hematuria, unspecified; G43.909 Migraine, unspecified, not intractable, without status migrainosus; Z79.82 Long term (current) use of aspirin; Z79.899 Other long term (current) drug therapy
CPT/HCPCS: 36415; 74018; 74176; 80048; 81001; 85027; 99284

== ENCOUNTER 2021-12-18 14:30 | Inpatient (IN) | payer MEDICARE ==
[2021-12-18] MEDS ORDERED: SODIUM CHLORIDE 0.9% 1000 ML 1,000 ML IV ONE (14:48)
[2021-12-18 15:03] LABS: Basophils # (Auto) 0.1 K/mm3 (0.0-0.1); Basophils % (Auto) 1.4 % (0.0-1.8); Eosinophils # (Auto) 0.2 K/mm3 (0.0-0.4); Hematocrit 39.6 % (35.5-45.6); Hemoglobin 12.6 gm/dl (11.8-15.2); Lymphocytes # (Auto) 0.9 K/mm3 (1.2-5.4); Lymphocytes % (Auto) 19.3 % (13.4-35.0); Mean Corpuscular HGB Conc 32 % (32-34); Mean Corpuscular Volume 93 fl (84-94); Monocytes # (Auto) 0.3 K/mm3 (0.0-0.8); Monocytes % (Auto) 7.4 % (0.0-7.3); Platelet Count 207 K/mm3 (140-440); Red Blood Count 4.26 M/mm3 (3.65-5.03); Red Cell Distribution Width 13.3 % (13.2-15.2)
--- NOTE | 2021-12-18 15:05 | Consultation ---
History of Present Illness - Reason for Consult Consult date: 12/18/21 - History of Present Illness [facility] Consult Note # Demographics Consult Type: Acute Stroke Level 1 (0-4.5 hrs) Patient Location: Emergency Room First Name: Jean-Pierre Last Name: Josefa Date of : 1955 Age: 66 Gender: Male Facility: [facility] Time of Initial Page ( Time): 12/18/2021, 14:51 Time of Return Call ( Time): 12/18/2021, 14:52 # HPI History: 66yo man who presents with headache on the left side. He also has left sided weakness. Onset was at 200PM or so EST. Last Known Normal: 4 hours ago Possible Thrombolytic candidate: not on warfarin or NOACs no intracranial hemorrhage history no recent major surgery no known active major internal bleeding no known blood disorders # Scores Time of exam and NIHSS (): 12/18/2021, 14:57 Level of Consciousness 1a: [0] = Alert; keenly responsive LOC Questions 1b: [0] = Answers both questions correctly LOC Commands 1c: [0] = Performs both tasks correctly Best Gaze 2: [0] = Normal Visual 3: [0] = No visual loss Facial Palsy 4: [0] = Normal symmetrical movements Motor Arm Left 5a: [0] = No drift Motor Arm Right 5b: [0] = No drift Motor Leg Left 6a: [3] = No effort against gravity Motor Leg Right 6b: [0] = No drift Limb Ataxia 7: [0] = Absent Sensory 8: [0] = Normal Best Language 9: [0] = No aphasia Dysarthria 10: [0] = Normal Extinction and Inattention 11: [0] = No abnormality NIHSS Total: 3 # Exam Vitals: vital signs reviewed # PMH-FH-SH Past Medical History: TIA Medications: denies # Data Time Head CT personally read by me (): 12/18/2021, 14:[address]: no bleed # Assessment Impression: Ischemic Stroke (Acute) # Plan Thrombolytic/Intervention: IV Thrombolysis Thrombolytic Dosing: IV alteplase 0.9 mg/kg, max dose 90 mg; 10% of dose given over 1 minute IVP, remaining 90% given as infusion over 1 hour Intraarterial Exclusion: clinically consistent with small vessel disease Time IV Thrombolytic Recommended (Eastern Time): 12/18/2021, 15:02 Target Blood Pressure: SBP < 180 DBP < 105 Labs: lipid panel Imaging: (urgency: STAT): CT Angiogram Head and CT Angiogram Neck Imaging: (urgency: routine): MRI Brain without contrast Diagnostic Test: echo without bubble study Therapy/Evaluation: NPO until swallow evaluation PT/OT evaluation speech/swallow consultation DVT Prophylaxis: SCD Thrombolytic Administration Recommendations: I have collected independent history specific to time last normal or last known well. We have collaborated with the ED provider and at this time, we have the most current timeline with the information that is available. BP goal< 180/105 for 24hrs post Thrombolytic administration Use Labetolol 10-20mg IV prn or Nicardipine gtt to maintain BP parameters No antiplatelets or anticoagulants for next 24 hrs unless indicated for emergent IA procedure or other life threatening situation ICU admission Call back if there is any decline in neurological condition Other: LDL < 70 telemetry monitoring I have discussed my recommendations with the referring provider Disposition: transfer to ICU Medications and Allergies Allergies Allergy/AdvReac Type Severity Reaction Status Date / Time No Known Allergies Allergy Verified 12/18/21 14:41 Home Medications Medication Instructions Recorded Confirmed Last Taken Type Aspirin EC [Aspirin Enteric Coated 81 mg PO QDAY 11/07/14 11/07/14 Unknown History TAB] Tamsulosin [Flomax] 0.4 mg PO QDAY #30 capsule 11/07/14 Unknown Rx Docusate Sodium [Colace] 100 mg PO BID PRN #30 capsule 02/07/15 Unknown Rx Magnesium Citrate [Citrate of 300 ml PO ONCE PRN #1 bottle 02/07/15 Unknown Rx Magnesia] SUMAtriptan SUCCINATE [Imitrex] 100 mg PO PRN PRN #10 tablet 02/07/15 Unknown Rx bisacodyL [Dulcolax suppos] 10 mg CO ONCE #4 supp.rect 12/16/19 Unknown Rx cephALEXin [Keflex] 500 mg PO Q6HR #28 capsule 12/05/21 Unknown Rx traMADoL [Ultram 50 MG tab] 50 mg PO Q6HR PRN #12 tablet 12/05/21 Unknown Rx Active Meds: Active Medications Sodium Chloride (Nacl 0.9% 1000 Ml) 1,000 mls @ 999 mls/hr IV BOLUS ONE Stop: 12/18/21 15:48 Exam - Constitutional Vitals: Temp Pulse Resp BP Pulse Ox 97.6 F 83 16 166/82 100 12/18/21 14:38 12/18/21 14:38 12/18/21 14:38 12/18/21 14:38 12/18/21 14:38 Results - Labs CBC & Chem 7: 12/18/21 14:54 Labs: Abnormal lab results 12/18/21 Range/Units 14:54 [place] % (Auto) 7.4 H (0.0-7.3) % Eos % (Auto) 5.0 H (0.0-4.3) % Lymph # (Auto) 0.9 L (1.2-5.4) K/mm3
[2021-12-18] MEDS ORDERED: ALTEPLASE 100 MG INJ KIT ONE (15:11)
[2021-12-18 15:24] LABS: INR 0.88 (0.87-1.13)
[2021-12-18 15:25] LABS: Partial Thromboplastin Time 31.4 Sec. (24.2-36.6)
--- NOTE | 2021-12-18 15:26 | Emergency Department Report ---
ED Neuro Deficit HPI - General Chief Complaint: Neuro Symptoms/Deficit Stated Complaint: HEADACHE/DIZZINESS Time Seen by Provider: 12/18/21 14:48 Source: patient Mode of arrival: Ambulatory Limitations: No Limitations - History of Present Illness Initial Comments: pt reports left arm and facial numbness x 1 hour, blurred vision and HOLLOWAY [ End ] -: Sudden, hour(s) (1) Location: left face, left arm, left leg Presenting Symptoms: Present: Weak/Paralyzed One Side, Sudden, Severe Headache History of same: Yes Place: home Severity: mild Quality: weak Improves With: none Worsens With: none On Anticoagulants: No Context: sudden onset Associated Symptoms: denies other symptoms - Related Data Home Medications: Home Medications Medication Instructions Recorded Confirmed Last Taken Aspirin EC [Aspirin Enteric Coated 81 mg PO QDAY 11/07/14 11/07/14 Unknown TAB] Previous Rx's Medication Instructions Recorded Last Taken Type Tamsulosin [Flomax] 0.4 mg PO QDAY #30 capsule 11/07/14 Unknown Rx Docusate Sodium [Colace] 100 mg PO BID PRN #30 capsule 02/07/15 Unknown Rx Magnesium Citrate [Citrate of 300 ml PO ONCE PRN #1 bottle 02/07/15 Unknown Rx Magnesia] SUMAtriptan SUCCINATE [Imitrex] 100 mg PO PRN PRN #10 tablet 02/07/15 Unknown Rx bisacodyL [Dulcolax suppos] 10 mg OR ONCE #4 supp.rect 12/16/19 Unknown Rx cephALEXin [Keflex] 500 mg PO Q6HR #28 capsule 12/05/21 Unknown Rx traMADoL [Ultram 50 MG tab] 50 mg PO Q6HR PRN #12 tablet 12/05/21 Unknown Rx Allergies/Adverse Reactions: Allergies Allergy/AdvReac Type Severity Reaction Status Date / Time No Known Allergies Allergy Verified 12/18/21 14:41 ED Review of Systems ROS: Stated complaint: HEADACHE/DIZZINESS Other details as noted in HPI Constitutional: denies: chills, fever Eyes: denies: eye pain, eye discharge, vision change ENT: denies: ear pain, throat pain Respiratory: denies: cough, shortness of breath, wheezing Cardiovascular: denies: chest pain, palpitations Endocrine: no symptoms reported Gastrointestinal: denies: abdominal pain, nausea, diarrhea Genitourinary: denies: urgency, dysuria Musculoskeletal: denies: back pain, joint swelling, arthralgia Skin: denies: rash, lesions Neurological: denies: headache, weakness, paresthesias Psychiatric: denies: anxiety, depression Hematological/Lymphatic: denies: easy bleeding, easy bruising ED Past Medical Hx - Past Medical History Previous Medical History?: Yes Hx CVA: No Hx Congestive Heart Failure: No Hx Diabetes: No Hx Headaches / Migraines: Yes Hx Asthma: No Hx COPD: No Additional medical history: enlarged prostate, complex migraines without headache - Surgical History Past Surgical History?: No Additional Surgical History: Right Inguinal Hernia, toes - Social History Smoking Status: Never Smoker Substance Use Type: None - Medications Home Medications: Home Medications Medication Instructions Recorded Confirmed Last Taken Type Aspirin EC [Aspirin Enteric Coated 81 mg PO QDAY 11/07/14 11/07/14 Unknown History TAB] Tamsulosin [Flomax] 0.4 mg PO QDAY #30 capsule 11/07/14 Unknown Rx Docusate Sodium [Colace] 100 mg PO BID PRN #30 capsule 02/07/15 Unknown Rx Magnesium Citrate [Citrate of 300 ml PO ONCE PRN #1 bottle 02/07/15 Unknown Rx Magnesia] SUMAtriptan SUCCINATE [Imitrex] 100 mg PO PRN PRN #10 tablet 02/07/15 Unknown Rx bisacodyL [Dulcolax suppos] 10 mg OR ONCE #4 supp.rect 12/16/19 Unknown Rx cephALEXin [Keflex] 500 mg PO Q6HR #28 capsule 12/05/21 Unknown Rx traMADoL [Ultram 50 MG tab] 50 mg PO Q6HR PRN #12 tablet 12/05/21 Unknown Rx ED Neuro Physical Exam - General Limitations: No Limitations General appearance: alert, in no apparent distress Suspected Stroke: Yes - Head Head exam: Present: atraumatic, normocephalic - Eye Eye exam: Present: normal appearance - ENT ENT exam: Present: mucous membranes moist - Neck Neck exam: Present: normal inspection - Respiratory Respiratory exam: Present: normal lung sounds bilaterally. Absent: respiratory distress - Cardiovascular Cardiovascular Exam: Present: regular rate, normal rhythm. Absent: systolic murmur, diastolic murmur, rubs, gallop - GI/Abdominal GI/Abdominal exam: Present: soft, normal bowel sounds - Rectal Rectal exam: Present: deferred - Extremities Exam Extremities exam: Present: normal inspection - Back Exam Back exam: Present: normal inspection - Neurological Exam Neurological exam: Present: alert, oriented X3 - NIHSS Assessment Interval: Baseline 1a. Level of Consciousness: alert/keenly responsive 1b. LOC Questions: answers both correctly 1c. LOC Commands: performs tasks correctly 2. Best Gaze: normal 3. Visual: no visual loss 4. Facial Palsy: normal symmetrical movement 5b. Motor Arm Right: no drift 5a. Motor Arm Left: some gravity effort 6a. Motor Leg Left: some gravity effort 6b. Motor Leg Right: no drift 7. Limb Ataxia: absent 8. Sensory: normal 9. Best Language: no aphasia 10. Dysarthria: normal 11. Extinction/Inattention: no abnormality Total Score: 4 Stroke Severity: Minor Stroke - Psychiatric Psychiatric exam: Present: normal affect, normal mood - Skin Skin exam: Present: warm, dry, intact, normal color. Absent: rash ED Course Vital Signs 12/18/21 12/18/21 12/18/21 14:38 15:00 15:54 Temperature 97.6 F Pulse Rate 83 74 Pulse Rate [ 74 Left Arm] Respiratory 16 18 Rate Respiratory 16 Rate [Left Arm] Blood Pressure 166/82 Blood Pressure 140/86 [Left Arm] O2 Sat by Pulse 100 100 Oximetry O2 Sat by Pulse 99 Oximetry [Left Arm] - Reevaluation(s) Reevaluation #1: 12/18/21 15:25 code stroke on arrival, ct head negative , spoke with neurologist NIHSS of 3 , within window no contraindication, pt consented 12/18/21 16:10 TPA has been administered , vss , no compilation , CTA negative for LVO ill admit to ICU - Lab Data Result diagrams: 12/18/21 14:54 12/18/21 14:54 Lab Results 12/18/21 12/18/21 12/18/21 Range/Units 14:45 14:54 14:54 WBC 4.6 (4.5-11.0) K/mm3 RBC 4.26 (3.65-5.03) M/mm3 Hgb 12.6 (11.8-15.2) gm/dl Hct 39.6 (35.5-45.6) % MCV 93 (84-94) fl MCH 30 (28-32) pg MCHC 32 (32-34) % RDW 13.3 (13.2-15.2) % Plt Count 207 (140-440) K/mm3 Lymph % (Auto) 19.3 (13.4-35.0) % [place] % (Auto) 7.4 H (0.0-7.3) % Eos % (Auto) 5.0 H (0.0-4.3) % Baso % (Auto) 1.4 (0.0-1.8) % Lymph # (Auto) 0.9 L (1.2-5.4) K/mm3 [place] # (Auto) 0.3 (0.0-0.8) K/mm3 Eos # (Auto) 0.2 (0.0-0.4) K/mm3 Baso # (Auto) 0.1 (0.0-0.1) K/mm3 Seg Neutrophils % 66.9 (40.0-70.0) % Seg Neutrophils # 3.1 (1.8-7.7) K/mm3 PT 13.0 (12.2-14.9) Sec. INR 0.88 (0.87-1.13) APTT 31.4 (24.2-36.6) Sec. Thrombin Time 17.0 (15.1-19.6) Sec. Sodium (137-145) mmol/L Potassium (3.6-5.0) mmol/L Chloride (98-107) mmol/L Carbon Dioxide (22-30) mmol/L Anion Gap mmol/L BUN (9-20) mg/dL Creatinine (0.8-1.3) mg/dL Estimated GFR ml/min BUN/Creatinine Ratio % Glucose (75-100) mg/dL POC Glucose 88 (70-105) mg/dL Calcium (8.4-10.2) mg/dL Total Bilirubin (0.1-1.2) mg/dL AST (5-40) units/L ALT (7-56) units/L Alkaline Phosphatase (35-129) units/L Total Creatine Kinase (55-170) units/L CK-MB (CK-2) (0.0-4.0) ng/mL CK-MB (CK-2) Rel Index (0-4) Troponin T (0.00-0.029) ng/mL Total Protein (6.3-8.2) g/dL Albumin (3.9-5) g/dL Albumin/Globulin Ratio % 12/18/ Range/Units 14:54 WBC (4.5-11.0) K/mm3 RBC (3.65-5.03) M/mm3 Hgb (11.8-15.2) gm/dl Hct (35.5-45.6) % MCV (84-94) fl MCH (28-32) pg MCHC (32-34) % RDW (13.2-15.2) % Plt Count (140-440) K/mm3 Lymph % (Auto) (13.4-35.0) % [place] % (Auto) (0.0-7.3) % Eos % (Auto) (0.0-4.3) % Baso % (Auto) (0.0-1.8) % Lymph # (Auto) (1.2-5.4) K/mm3 [place] # (Auto) (0.0-0.8) K/mm3 Eos # (Auto) (0.0-0.4) K/mm3 Baso # (Auto) (0.0-0.1) K/mm3 Seg Neutrophils % (40.0-70.0) % Seg Neutrophils # (1.8-7.7) K/mm3 PT (12.2-14.9) Sec. INR (0.87-1.13) APTT (24.2-36.6) Sec. Thrombin Time (15.1-19.6) Sec. Sodium 139 (137-145) mmol/L Potassium 4.2 (3.6-5.0) mmol/L Chloride 102.2 (98-107) mmol/L Carbon Dioxide 26 (22-30) mmol/L Anion Gap 15 mmol/L BUN 14 (9-20) mg/dL Creatinine 1.0 (0.8-1.3) mg/dL Estimated GFR > 60 ml/min BUN/Creatinine Ratio 14 % Glucose 93 (75-100) mg/dL POC Glucose (70-105) mg/dL Calcium 9.3 (8.4-10.2) mg/dL Total Bilirubin 0.50 (0.1-1.2) mg/dL AST 16 (5-40) units/L ALT 9 (7-56) units/L Alkaline Phosphatase 70 (35-129) units/L Total Creatine Kinase 93 (55-170) units/L CK-MB (CK-2) 2.1 (0.0-4.0) ng/mL CK-MB (CK-2) Rel Index 2.2 (0-4) Troponin T < 0.010 (0.00-0.029) ng/mL Total Protein 7.3 (6.3-8.2) g/dL Albumin 4.2 (3.9-5) g/dL Albumin/Globulin Ratio 1.4 % Critical Care Time: Yes Critical care time in (mins) excluding proc time.: 65 Critical care attestation.: If time is entered above; I have spent that time in minutes in the direct care of this critically ill patient, excluding procedure time. ED Disposition Clinical Impression: Acute CVA (cerebrovascular accident), Left-sided weakness Disposition: ADMITTED INPATIENT Is pt being admited?: Yes Does the pt Need Aspirin: No Condition: Critical Referrals: PRIMARY CARE, [Primary Care Provider] - 3-5 Days
[2021-12-18 15:29] LABS: Creatine Kinase MB 2.1 ng/mL (0.0-4.0)
[2021-12-18 15:31] LABS: Alanine Aminotransferase 9 units/L (7-56); Albumin 4.2 g/dL (3.9-5); BUN/Creatinine Ratio 14; Blood Urea Nitrogen 14 mg/dL (9-20); Calcium 9.3 mg/dL (8.4-10.2); Hemolysis Index 9
--- NOTE | 2021-12-18 15:35 | Cat Scan Report ---
CT head/brain wo con INDICATION / CLINICAL INFORMATION: 66 years Male; CODE STROKE CALL ER MAIN AT 8199\ Stroke symptoms. TECHNIQUE: Routine CT head without contrast. All CT scans at this location are performed using CT dos e reduction for ALARA by means of automated exposure control. COMPARISON: The study is compared to previous CT of 11/07/2014. FINDINGS: BRAIN / INTRACRANIAL CONTENTS: The motion greatly image quality. However, there appear to be mild per iventricular white matter changes most consistent with mild microvascular angiopathy at. The ventricu lar system is within normal limits in size and configuration. There is no clear CT evidence of acute intracranial hemorrhage or significant mass effect. ORBITS: No significant abnormality of visualized orbits. SINUSES / MASTOIDS: There is mild opacification along the visualized posterior right maxillary sinus. CRANIOCERVICAL JUNCTION: No significant abnormality. ADDITIONAL FINDINGS: None. IMPRESSION: 1. There is no clear CT evidence of acute intracranial process. The study was specified as code stroke and called emergently to in the ER at 2:26 PM Cent[facility] al standard time. Signer Name: Fidencio Tolliver MD Signed: 12/18/2021 3:30 PM Workstation Name: [id number]
[2021-12-18] MEDS ORDERED: ALTEPLASE 2 MG INJ IV ONE (15:43)
--- NOTE | 2021-12-18 15:44 | Cat Scan Report ---
CT angio head, CT angio neck INDICATION / CLINICAL INFORMATION: 66 years Male; CODE STROKE CALL ER MAIN AT 8199 OMNI 350 100 ML stroke sx. TECHNIQUE: Unenhanced CT of the head initially performed. Thin cut axial images obtained through the head and neck during IV bolus contrast administration. Sagittal, coronal, and 3 plane MIP reconstruct ions performed by the technologist. NASCET type criteria used evaluate stenoses. Automated exposure c ontrol utilized for radiation reduction purposes. . CT HEAD COMPARISON: None. FINDINGS: BRAIN / INTRACRANIAL CONTENTS: No acute hemorrhage, mass effect, midline shift, hydrocephalus, or acu te, large territorial infarct. No signs of significant atrophy or chronic infarct. No significant whi te matter abnormality seen. CRANIOCERVICAL JUNCTION: No significant abnormality. ORBITS: No significant abnormality of visualized orbits. SINUSES / MASTOIDS: Visualized paranasal sinuses and mastoid air cells are essentially clear. ADDITIONAL FINDINGS: None. IMPRESSION: No intracerebral hemorrhage or stroke mimics No acute/subacute territorial infarction CTA HEAD COMPARISON: None available. FINDINGS: INTERNAL CAROTID ARTERIES: No significant narrowing appreciated. VERTEBROBASILAR SYSTEM: Distal vertebral arteries patent; basilar artery diminutive (congenital) but patent up to basilar tip; both posterior communicating arteries are contributing significantly to pos terior cerebral arteries; both posterior cerebral arteries are normal DISTAL BRANCHES: Distal branches of the anterior, middle, and posterior cerebral arteries are fairly symmetric in appearance and number. ANEURYSM: None identified. ADDITIONAL FINDINGS: Remainder of the surrounding soft tissues are grossly normal. IMPRESSION: No significant abnormality on this CTA of the head. No large vessel occlusion CTA NECK COMPARISON: None available. FINDINGS: ARCH: Normal aortic arch branching suggested. CAROTID ARTERIES: The visualized common and internal carotid arteries are widely patent. Carotid bifu rcations normal VERTEBRAL ARTERIES: Codominant vertebral system seen. No significant stenosis appreciated. ADDITIONAL FINDINGS: Remainder of the surrounding soft tissues are grossly normal. IMPRESSION: No significant stenosis appreciated on this CTA of the neck. CODE STROKE: Time of Communication (TRUCK WASHER/CDT): 2:40 PM Licensed Practitioner Receiving Report: ER physician Signer Name: Anabell Jenkins MD Signed: 12/18/2021 3:39 PM Workstation Name: [facility]
--- NOTE | 2021-12-18 15:47 | XRay Report ---
CHEST 1 VIEW INDICATION: CVA. COMPARISON: None FINDINGS: Support devices: None. Heart: Within normal limits. Lungs/Pleura: No acute air space or interstitial disease. Additional findings: None. IMPRESSION: No acute findings. Signer Name: Luis Bender Jr, MD Signed: 12/18/2021 3:43 PM Workstation Name: [id number]
[2021-12-18] MEDS ORDERED: SODIUM CHLORIDE 0.9% 50 ML IVPB IV ONE (16:04)
[2021-12-18] MEDS ORDERED: ALTEPLASE 100 MG INJ KIT IV ONE ×2 (16:04)
[2021-12-18] MEDS ORDERED: ONDANSETRON 4 MG/2 ML INJ IV PRN (19:25)
[2021-12-18] MEDS ORDERED: ACETAMINOPHEN 325 MG TAB PO PRN (19:25)
[2021-12-18] MEDS ORDERED: METOCLOPRAMIDE 10 MG/2 ML INJ IV PRN (19:29)
[2021-12-18] MEDS ORDERED: SODIUM CHLORIDE 0.9% 1000 ML 1,000 ML IV SCH (19:30)
--- NOTE | 2021-12-18 20:00 | History and Physical Report ---
History of Present Illness Date of examination: 12/18/21 Date of admission: December 18, 2021 Chief complaint: Sudden onset of left-sided weakness and dysarthria around 2 PM History of present illness: 56-year-old male with history of BPH and migraine headaches comes in for sudden onset of left-sided weakness left-sided numbness, severe headache and blurred vision since 2 PM. Patient came within the first 1 hour of symptoms and code stroke was called. Patient was given TPA in the emergency room. Post TPA patient had improvement in his left upper extremity weakness but left lower extremity has persistent weakness. Patient feels improvement in symptoms. P atient also feels that his slurred speech is resolved. No nasal regurgitation of fluids. No diplopia. No difficulty in swallowing. ED course: Patient was given TPA on the recommendation of teleneurologist with improvement in symptoms of the left-sided weakness - Past Medical History --Headaches / Migraines: Yes --Additional medical history: enlarged prostate, complex migraines without headache - Surgical History --Right Inguinal Hernia, toes - Social History --Smoking Status: Never Smoker --Substance Use Type: None - Family history --Htn --Review of Systems --ROS: --Stated complaint: HEADACHE/DIZZINESS --Other details as noted in HPI --Constitutional: denies: chills, fever --Eyes: denies: eye pain, eye discharge, vision change --ENT: denies: ear pain, throat pain --Respiratory: denies: cough, shortness of breath, wheezing --Cardiovascular: denies: chest pain, palpitations --Endocrine: no symptoms reported --Gastrointestinal: denies: abdominal pain, nausea, diarrhea --Genitourinary: denies: urgency, dysuria --Musculoskeletal: denies: back pain, joint swelling, arthralgia --Skin: denies: rash, lesions --Neurological: denies: headache, weakness, paresthesias --Psychiatric: denies: anxiety, depression --Hematological/Lymphatic: denies: easy bleeding, easy bruising Medications and Allergies Allergies Allergy/AdvReac Type Severity Reaction Status Date / Time No Known Allergies Allergy Verified 12/18/21 14:41 Home Medications Medication Instructions Recorded Confirmed Last Taken Type Aspirin EC [Aspirin Enteric Coated 81 mg PO QDAY 11/07/14 11/07/14 Unknown History TAB] Tamsulosin [Flomax] 0.4 mg PO QDAY #30 capsule 11/07/14 Unknown Rx Docusate Sodium [Colace] 100 mg PO BID PRN #30 capsule 02/07/15 Unknown Rx Magnesium Citrate [Citrate of 300 ml PO ONCE PRN #1 bottle 02/07/15 Unknown Rx Magnesia] SUMAtriptan SUCCINATE [Imitrex] 100 mg PO PRN PRN #10 tablet 02/07/15 Unknown Rx bisacodyL [Dulcolax suppos] 10 mg MD ONCE #4 supp.rect 12/16/19 Unknown Rx cephALEXin [Keflex] 500 mg PO Q6HR #28 capsule 12/05/21 Unknown Rx traMADoL [Ultram 50 MG tab] 50 mg PO Q6HR PRN #12 tablet 12/05/21 Unknown Rx Exam - Constitutional Vitals: Temp Pulse Resp BP Pulse Ox 97.6 F 78 18 132/74 100 12/18/21 14:38 12/18/21 18:21 12/18/21 18:21 12/18/21 18:21 12/18/21 18:21 General appearance: Present: no acute distress, well-nourished - EENT Eyes: Present: PERRL ENT: hearing intact, clear oral mucosa - Neck Neck: Present: supple, normal ROM - Respiratory Respiratory effort: normal Respiratory: bilateral: CTA - Cardiovascular Heart rate: 78 Rhythm: regular Heart Sounds: Present: S1 & S2. Absent: rub, click - Extremities Extremities: no ischemia, pulses intact, pulses symmetrical, No edema Peripheral Pulses: within normal limits - Abdominal General gastrointestinal: Present: soft, non-tender, non-distended, normal bowel sounds Male genitourinary: Present: normal - Rectal Rectal Exam: deferred - Integumentary Integumentary: Present: clear, warm, dry - Musculoskeletal Musculoskeletal: left sided weakness - Psychiatric Psychiatric: appropriate mood/affect, intact judgment & insight - Neurologic Neurologic: CNII-XII intact, focal deficits (Left upper extremity 3/5 power, left lower extremity 0/5 power), moves all extremities - Allied Health Allied health notes reviewed: nursing, case management HEART Score - HEART Score Troponin: Troponin T < 0.010 ng/mL (0.00-0.029) 12/18/21 14:54 Results - Labs CBC & Chem 7: 12/19/21 04:45 12/19/21 04:45 Labs: Laboratory Last Values WBC 4.6 K/mm3 (4.5-11.0) 12/18/21 14:54 RBC 4.26 M/mm3 (3.65-5.03) 12/18/21 14:54 Hgb 12.6 gm/dl (11.8-15.2) 12/18/21 14:54 Hct 39.6 % (35.5-45.6) 12/18/21 14:54 MCV 93 fl (84-94) 12/18/21 14:54 MCH 30 pg (28-32) 12/18/21 14:54 MCHC 32 % (32-34) 12/18/21 14:54 RDW 13.3 % (13.2-15.2) 12/18/21 14:54 Plt Count 207 K/mm3 (140-440) 12/18/21 14:54 Lymph % (Auto) 19.3 % (13.4-35.0) 12/18/21 14:54 [place] % (Auto) 7.4 % (0.0-7.3) H 12/18/21 14:54 Eos % (Auto) 5.0 % (0.0-4.3) H 12/18/21 14:54 Baso % (Auto) 1.4 % (0.0-1.8) 12/18/21 14:54 Lymph # (Auto) 0.9 K/mm3 (1.2-5.4) L 12/18/21 14:54 [place] # (Auto) 0.3 K/mm3 (0.0-0.8) 12/18/21 14:54 Eos # (Auto) 0.2 K/mm3 (0.0-0.4) 12/18/21 14:54 Baso # (Auto) 0.1 K/mm3 (0.0-0.1) 12/18/21 14:54 Seg Neutrophils % 66.9 % (40.0-70.0) 12/18/21 14:54 Seg Neutrophils # 3.1 K/mm3 (1.8-7.7) 12/18/21 14:54 PT 13.0 Sec. (12.2-14.9) 12/18/21 14:54 INR 0.88 (0.87-1.13) 12/18/21 14:54 APTT 31.4 Sec. (24.2-36.6) 12/18/21 14:54 Thrombin Time 17.0 Sec. (15.1-19.6) 12/18/21 14:54 Sodium 139 mmol/L (137-145) 12/18/21 14:54 Potassium 4.2 mmol/L (3.6-5.0) 12/18/21 14:54 Chloride 102.2 mmol/L (98-107) 12/18/21 14:54 Carbon Dioxide 26 mmol/L (22-30) 12/18/21 14:54 Anion Gap 15 mmol/L 12/18/21 14:54 BUN 14 mg/dL (9-20) 12/18/21 14:54 Creatinine 1.0 mg/dL (0.8-1.3) 12/18/21 14:54 Estimated GFR > 60 ml/min 12/18/21 14:54 BUN/Creatinine Ratio 14 % 12/18/21 14:54 Glucose 93 mg/dL (75-100) 12/18/21 14:54 POC Glucose 88 mg/dL (70-105) 12/18/21 14:45 Calcium 9.3 mg/dL (8.4-10.2) 12/18/21 14:54 Total Bilirubin 0.50 mg/dL (0.1-1.2) 12/18/21 14:54 AST 16 units/L (5-40) 12/18/21 14:54 ALT 9 units/L (7-56) 12/18/21 14:54 Alkaline Phosphatase 70 units/L (35-129) 12/18/21 14:54 Total Creatine Kinase 93 units/L (55-170) 12/18/21 14:54 CK-MB (CK-2) 2.1 ng/mL (0.0-4.0) 12/18/21 14:54 CK-MB (CK-2) Rel Index 2.2 (0-4) 12/18/21 14:54 Troponin T < 0.010 ng/mL (0.00-0.029) 12/18/21 14:54 Total Protein 7.3 g/dL (6.3-8.2) 12/18/21 14:54 Albumin 4.2 g/dL (3.9-5) 12/18/21 14:54 Albumin/Globulin Ratio 1.4 % 12/18/21 14:54 - Imaging and Cardiology EKG: report reviewed (Sinus rhythm no acute ST-T wave changes) Imaging and Cardiology: Chest x-ray No acute findings Head CT There is no clear CT evidence of acute intracranial process Head CTA No intracranial intracerebral hemorrhage or stroke mimics No acute/subacute territorial infarction Neck CTA No acute findings are stenosis Assessment and Plan Assessment and plan: Critical care statement The high probability OF a clinically significant sudden or life-threatening deterioration of the cardiorespiratory system and endocrine system required my full and direct attention, intervention and postoperative management. The aggregate critical care time was 40 minutes. The time is in addition to time spent performing reported procedures but includes the followin: Data review and interpretation 2: Patient assessment and monitoring of vital signs 3: Documentation 4:: Medication orders and management Advance Directives: Yes (Full code) VTE prophylaxis?: Chemical Plan of care discussed with patient/family: Yes - Patient Problems (1) Acute CVA (cerebrovascular accident) Current Visit: Yes Status: Acute Plan to address problem: Patient came to the emergency room within an hour of symptoms Code stroke was initiated Because patient was within the time. For TPA--telemetry neurology was consulted and was given TPA. At the time of admission to the emergency room patient had dysarthria and left upper extremity weakness which was near 0/5 power and left lower extremity which was about 0/5 power. After TPA patient improved as far as his dysarthria was concerned and left upper extremity weakness was concerned. Patient was able to lift his left upper extremity against gravity. No power in left lower extremity. Right side normal power in both right upper extremity and right lower extremity. Stroke protocol was initiated. Patient to get MRI brain and echocardiogram for LV ejection fraction and to rule out any left-ventricular thrombus. No carotid duplex scan because patient had head CT and neck CTA in the emergency room. Patient initiated on aspirin from tomorrow night Admission to ICU because of TPA Patient can be transferred to regular floor if stable tomorrow (2) Hypertension Current Visit: Yes Status: Acute Qualifiers: Hypertension type: primary hypertension Qualified Code(s): I10 - Essential (primary) hypertension Plan to address problem: Borderline We will trend the blood pressure and start antihypertensives if necessary Patient is not on any antihypertensives (3) BPH (benign prostatic hyperplasia) Current Visit: Yes Status: Chronic Qualifiers: Lower urinary tract symptom presence: symptoms present Plan to address problem: On Flomax (4) Migraine headache Current Visit: Yes Status: Chronic Qualifiers: Migraine type: unspecified Plan to address problem: Patient is on sumatriptan as needed basis No migraine headache at this point (5) DVT prophylaxis Current Visit: Yes Status: Acute Plan to address problem: Patient was given TPA Heparin after 36 hours subcu GI prophylaxis (6) Advance care planning Current Visit: Yes Status: Acute Plan to address problem: Disease education conducted, care plan discussed, diagnosis discussed, prognosis discussed. Patient is full code. Patient acknowledged understanding and agreement with care plan. +30 minutes.
[2021-12-19 05:03] LABS: Basophils # (Auto) 0.1 K/mm3 (0.0-0.1); Basophils % (Auto) 1.2 % (0.0-1.8); Eosinophils # (Auto) 0.3 K/mm3 (0.0-0.4); Eosinophils % (Auto) 6.8 % (0.0-4.3); Hematocrit 36.7 % (35.5-45.6); Hemoglobin 11.6 gm/dl (11.8-15.2); Lymphocytes # (Auto) 1.3 K/mm3 (1.2-5.4); Lymphocytes % (Auto) 26.2 % (13.4-35.0); Mean Corpuscular HGB Conc 32 % (32-34); Mean Corpuscular Volume 93 fl (84-94); Monocytes # (Auto) 0.5 K/mm3 (0.0-0.8); Monocytes % (Auto) 9.2 % (0.0-7.3); Platelet Count 190 K/mm3 (140-440); Red Blood Count 3.97 M/mm3 (3.65-5.03); Red Cell Distribution Width 13.1 % (13.2-15.2)
[2021-12-19 05:19] LABS: Alanine Aminotransferase 7 units/L (7-56); Albumin 3.4 g/dL (3.9-5); Blood Urea Nitrogen 15 mg/dL (9-20); Calcium 8.6 mg/dL (8.4-10.2); Chol/HDL Ratio 1.75 %; HDL Cholesterol 58 mg/dL (40-59); Hemolysis Index 2; LDL Cholesterol,Direct 44 mg/dL (50-130)
[2021-12-19 05:21] LABS: BUN/Creatinine Ratio 21
[2021-12-19 09:16] LABS: Bilirubin,Urine NEG (Negative); Blood,Urine NEG (Negative); Color,Urine Yellow (Yellow); Protein,Urine <15 mg/dL mg/dL (Negative); RBC,Urine < 1.0 /HPF (0.0-6.0); Urobilinogen,Urine < 2.0 mg/dL (<2.0); WBC,Urine < 1.0 /HPF (0.0-6.0)
[2021-12-19 09:20] LABS: Amphetamine Screen,Urine Negative; Benzodiazepines Screen,Urine Negative; Cannabinoid Screen,Urine Negative; Cocaine Screen,Urine Negative; Methadone Screen,Urine Negative; Opiate Screen,Urine Negative
--- NOTE | 2021-12-19 09:29 | Electrocardiograph Report ---
[facility] Test Date: 2021-12-18 Test Time: 14:48:04 Pat Name: MIKEL FARRELL Department: Room: A259 1 Gender: M Configuration Specialist: ARABELLA : 1955 Requested By: MAGDALENO FLYNN Order Number: [id number] Reading MD: Soniya Hand Measurements Intervals [place] Rate: 78 P: 33 LA: 139 QRS: -39 QRSD: 80 T: 60 QT: 368 QTc: 420 Interpretive Statements Sinus rhythm Left axis deviation ST elevation suggests acute pericarditis No previous ECG available for comparison Electronically Signed On 12-19-2021 9:29:12 EST by Soniya Hand
--- NOTE | 2021-12-19 10:21 | Consultation ---
History of Present Illness - Reason for Consult Consult date: 12/19/21 Status Post TPA Stroke Requesting physician: SUKHI ARMENDARIZ - History of Present Illness 66 y/o male admitted to the ICU yesterday status post TPA for 24 hour obs with q1 hour neuro checks. This am, awake and alert, feels much better compared to yesterday. Remainder is negative. Past History Past Medical History: other (BPH, migraine) Past Surgical History: No surgical history Social history: no significant social history Family history: no significant family history Medications and Allergies Allergies Allergy/AdvReac Type Severity Reaction Status Date / Time No Known Allergies Allergy Verified 12/18/21 14:41 Home Medications Medication Instructions Recorded Confirmed Last Taken Type Aspirin EC [Aspirin Enteric Coated 81 mg PO QDAY 11/07/14 11/07/14 Unknown History TAB] Tamsulosin [Flomax] 0.4 mg PO QDAY #30 capsule 11/07/14 Unknown Rx Docusate Sodium [Colace] 100 mg PO BID PRN #30 capsule 02/07/15 Unknown Rx Magnesium Citrate [Citrate of 300 ml PO ONCE PRN #1 bottle 02/07/15 Unknown Rx Magnesia] SUMAtriptan SUCCINATE [Imitrex] 100 mg PO PRN PRN #10 tablet 02/07/15 Unknown Rx bisacodyL [Dulcolax suppos] 10 mg ME ONCE #4 supp.rect 12/16/19 Unknown Rx cephALEXin [Keflex] 500 mg PO Q6HR #28 capsule 12/05/21 Unknown Rx traMADoL [Ultram 50 MG tab] 50 mg PO Q6HR PRN #12 tablet 12/05/21 Unknown Rx Active Meds: Active Medications Acetaminophen (Acetaminophen 325 Mg Tab) 650 mg PO Q4H PRN PRN Reason: Pain MILD(1-3)/Fever >100.5/[place] Aspirin (Aspirin 325 Mg Tab) 325 mg PO QDAY MIYA Atorvastatin Calcium (Atorvastatin 40 Mg Tab) 40 mg PO QHS [facility] Last Admin: 12/18/21 22:45 Dose: 40 mg Heparin Sodium (Porcine) (Heparin 5,000 Unit/1 Ml Vial) 5,000 unit SUB-Q Q8HR MIYA Metoclopramide HCl (Metoclopramide 10 Mg/2 Ml Inj) 10 mg IV Q6H PRN PRN Reason: Nausea And Vomiting Ondansetron HCl (Ondansetron 4 Mg/2 Ml Inj) 4 mg IV Q3H PRN PRN Reason: Nausea And Vomiting Oxycodone/Acetaminophen (Oxycodone /Acetaminophen 5-325mg Tab) 1 tab PO Q6H PRN PRN Reason: Pain, Moderate (4-6) Sodium Chloride (Sodium Chloride 0.9% 10 Ml Flush Syringe) 10 ml IV BID MIYA Last Admin: 12/19/21 09:55 Dose: 10 ml Sodium Chloride (Sodium Chloride 0.9% 10 Ml Flush Syringe) 10 ml IV PRN PRN PRN Reason: LINE FLUSH Review of Systems All systems: negative Exam - Constitutional Vitals: Temp Pulse Resp BP Pulse Ox 98 F 71 19 122/65 98 12/19/21 09:00 12/19/21 09:00 12/19/21 09:00 12/19/21 09:00 12/19/21 09:38 General appearance: Present: no acute distress, well-nourished - EENT Eyes: Present: PERRL, EOM intact ENT: hearing intact, clear oral mucosa, dentition normal - Neck Neck: Present: supple, normal ROM - Respiratory Respiratory effort: normal Respiratory: bilateral: CTA - Cardiovascular Rhythm: regular Heart Sounds: Present: S1 & S2 Results - Labs CBC & Chem 7: 12/19/21 04:45 12/19/21 04:45 Labs: Abnormal lab results 12/18/21 12/19/21 12/19/21 Range/Units 14:54 04:45 04:45 Hgb 11.6 L (11.8-15.2) gm/dl RDW 13.1 L (13.2-15.2) % [place] % (Auto) 7.4 H 9.2 H (0.0-7.3) % Eos % (Auto) 5.0 H 6.8 H (0.0-4.3) % Lymph # (Auto) 0.9 L (1.2-5.4) K/mm3 Creatinine 0.7 L (0.8-1.3) mg/dL Total Protein 6.0 L (6.3-8.2) g/dL Albumin 3.4 L (3.9-5) g/dL LDL Cholesterol Direct 44 L (50-130) mg/dL - Imaging and Cardiology Chest x-ray: image reviewed (clear) Assessment and Plan 66 y/o male admitted with stroke like symptoms status post TPA with complete resolution of symptoms Continue q1 hour neuro checks until 1500 Transfer to floor post 24 hour obs period Start ASA therapy post 24 TPA administration Follow up with neurology outpatient as they are not here on the weekends.
--- NOTE | 2021-12-19 12:34 | Progress Note ---
<[email or web address] - Last Filed: 12/19/21 12:49> Assessment and Plan Assessment and plan: This is a 66-year-old male with BPH with a history of self catheterizations, migraine headaches, TIA, anxiety/depression, inguinal hernia repair admitted with ischemic CVA s/p TPA A/P: Neuro: Acute CVA s/p TPA, h/o TIA, migraine headaches -Neurology consulted, appreciate recommendations -Start aspirin therapy 24 hours post TPA (12/20) -Lipitor -Neurochecks per protocol -Target blood pressure less than 180/105 -Lipid panel noted -CT head on admit shows no clear CT evidence of acute intracranial process -CTA head/neck shows no significant normality CTA head, no large vessel oc clusion, no significant stenosis appreciated in CT of neck -MRI brain pending -Echocardiogram -PT/OT/ST evaluation -Per neurology: BP goal< 180/105 for 24hrs post Thrombolytic administration -Use Labetolol 10-20mg IV prn or Nicardipine gtt to maintain BP parameters -No antiplatelets or anticoagulants for next 24 hrs unless indicated for emergent IA procedure or other life threatening situation -Call back with any decline neuro status -LDL goal less than 70 -Aspiration/seizure precautions Cardiac: NAD -Per neurology: BP goal< 180/105 for 24hrs post Thrombolytic administration -Use Labetolol 10-20mg IV prn or Nicardipine gtt to maintain BP parameters -Blood pressure monitoring per protocol -Echocardiogram pending -CCM consulted, appreciate recommendations Respiratory: NAD -Monitor oxygen as needed -Pulmonary hygiene -SPO2 monitoring GI: Protein calorie malnutrition -24 hours SHAD -PPI -Cardiac diet -BR: colace : h/o bph -patient self straight caths -c/o flank pain -send UA -Renally dose medications -Avoid nephrotoxic medications -trend BMP ID: NAD -Monitor WBC and temperature curve Endo: NAD -Avoid hypoglycemia -Accu-Cheks for 24 hr Heme: NAD -Trend CBC -Transfuse hemoglobin less than 7 -Monitor for signs of bleeding -SCDs to BLE while in bed -heparin subq The high probability of a clinically significant, sudden or life threatening deterioration of the [neuro] system(s) required my full and direct attention, intervention and personal management. The aggregate critical care time was [60] minutes. This time is in addition to time spent performing reported procedures but includes the following: [x] Data Review and interpretation [x] Patient assessment and monitoring of vital signs [x] Documentation [x] Medication orders and management Disposition Plan: icu Total Time Spent with Patient (Minutes): 60 History Interval history: This is a 66-year-old male with BPH, migraine headaches, TIA, inguinal hernia repair who presented to [facility] on 12/18 with sudden o nset of left-sided weakness, left-sided numbness, slurred speech, severe headache and blurred vision. Patient with a code stroke and was given TPA in the emergency department and post TPA did have improvement in his left upper extremity weakness. In the emergency department telemetry neurology was consulted and CT head was negative for any acute process and admit NIHSS was 3. Patient admitted to the hospital service and initiated on post TPA CVA protocol with consults to neurology and CCM. Patient will be observed in the ICU for 24 hours. 12/19: Patient states that his symptoms have nearly resolved, on examination he does have sensory deficits to left upper and lower extremity with slight drift. Patient will be transferred to the the floor after 1500 given no changes in neuro status. Hospitalist Physical - Constitutional Vitals: Temp Pulse Resp BP Pulse Ox 98 F 76 13 134/83 98 12/19/21 09:00 12/19/21 11:01 12/19/21 11:01 12/19/21 11:01 12/19/21 11:01 General appearance: Present: no acute distress, well-nourished - EENT Eyes: Present: PERRL, EOM intact ENT: clear oral mucosa - Neck Neck: Present: normal ROM - Respiratory Respiratory effort: normal Respiratory: bilateral: diminished - Cardiovascular Rhythm: regular Heart Sounds: Present: S1 & S2. Absent: systolic murmur, diastolic murmur - Extremities Extremities: no ischemia, pulses intact, pulses symmetrical, No edema, normal temperature, normal color Peripheral Pulses: within normal limits - Abdominal General gastrointestinal: soft, non-tender, non-distended, normal bowel sounds - Integumentary Integumentary: Present: warm, dry - Psychiatric Psychiatric: cooperative - Neurologic Neurologic: other (LUE and LLE drift, decreased sensation to LLE/LUE) HEART Score - HEART Score Troponin: Troponin T < 0.010 ng/mL (0.00-0.029) 12/18/21 14:54 Results - Labs CBC & Chem 7: 12/19/21 04:45 12/19/21 04:45 Labs: Laboratory Last Values WBC 5.0 K/mm3 (4.5-11.0) 12/19/21 04:45 RBC 3.97 M/mm3 (3.65-5.03) 12/19/21 04:45 Hgb 11.6 gm/dl (11.8-15.2) L 12/19/21 04:45 Hct 36.7 % (35.5-45.6) 12/19/21 04:45 MCV 93 fl (84-94) 12/19/21 04:45 MCH 29 pg (28-32) 12/19/21 04:45 MCHC 32 % (32-34) 12/19/21 04:45 RDW 13.1 % (13.2-15.2) L 12/19/21 04:45 Plt Count 190 K/mm3 (140-440) 12/19/21 04:45 Lymph % (Auto) 26.2 % (13.4-35.0) 12/19/21 04:45 [place] % (Auto) 9.2 % (0.0-7.3) H 12/19/21 04:45 Eos % (Auto) 6.8 % (0.0-4.3) H 12/19/21 04:45 Baso % (Auto) 1.2 % (0.0-1.8) 12/19/21 04:45 Lymph # (Auto) 1.3 K/mm3 (1.2-5.4) 12/19/21 04:45 [place] # (Auto) 0.5 K/mm3 (0.0-0.8) 12/19/21 04:45 Eos # (Auto) 0.3 K/mm3 (0.0-0.4) 12/19/21 04:45 Baso # (Auto) 0.1 K/mm3 (0.0-0.1) 12/19/21 04:45 Seg Neutrophils % 56.6 % (40.0-70.0) 12/19/21 04:45 Seg Neutrophils # 2.8 K/mm3 (1.8-7.7) 12/19/21 04:45 PT 13.0 Sec. (12.2-14.9) 12/18/21 14:54 INR 0.88 (0.87-1.13) 12/18/21 14:54 APTT 31.4 Sec. (24.2-36.6) 12/18/21 14:54 Thrombin Time 17.0 Sec. (15.1-19.6) 12/18/21 14:54 Sodium 140 mmol/L (137-145) 12/19/21 04:45 Potassium 4.0 mmol/L (3.6-5.0) 12/19/21 04:45 Chloride 106.2 mmol/L (98-107) 12/19/21 04:45 Carbon Dioxide 23 mmol/L (22-30) 12/19/21 04:45 Anion Gap 15 mmol/L 12/19/21 04:45 BUN 15 mg/dL (9-20) 12/19/21 04:45 Creatinine 0.7 mg/dL (0.8-1.3) L 12/19/21 04:45 Estimated GFR > 60 ml/min 12/19/21 04:45 BUN/Creatinine Ratio 21 % 12/19/21 04:45 Glucose 92 mg/dL (75-100) 12/19/21 04:45 POC Glucose 88 mg/dL (70-105) 12/18/21 14:45 Calcium 8.6 mg/dL (8.4-10.2) 12/19/21 04:45 Total Bilirubin 0.30 mg/dL (0.1-1.2) 12/19/21 04:45 AST 10 units/L (5-40) 12/19/21 04:45 ALT 7 units/L (7-56) 12/19/21 04:45 Alkaline Phosphatase 61 units/L (35-129) 12/19/21 04:45 Total Creatine Kinase 93 units/L (55-170) 12/18/21 14:54 CK-MB (CK-2) 2.1 ng/mL (0.0-4.0) 12/18/21 14:54 CK-MB (CK-2) Rel Index 2.2 (0-4) 12/18/21 14:54 Troponin T < 0.010 ng/mL (0.00-0.029) 12/18/21 14:54 Total Protein 6.0 g/dL (6.3-8.2) L 12/19/21 04:45 Albumin 3.4 g/dL (3.9-5) L 12/19/21 04:45 Albumin/Globulin Ratio 1.3 % 12/19/21 04:45 Triglycerides 37 mg/dL (2-149) 12/19/21 04:45 Cholesterol 102 mg/dL (50-199) 12/19/21 04:45 LDL Cholesterol Direct 44 mg/dL (50-130) L 12/19/21 04:45 HDL Cholesterol 58 mg/dL (40-59) 12/19/21 04:45 Cholesterol/HDL Ratio 1.75 % 12/19/21 04:45 Urine Color Yellow (Yellow) 12/19/21 Unknown Urine Turbidity Clear (Clear) 12/19/21 Unknown Urine pH 7.0 (5.0-7.0) 12/19/21 Unknown Ur Specific [place] 1.020 (1.003-1.030) 12/19/21 Unknown Urine Protein <15 mg/dl mg/dL (Negative) 12/19/21 Unknown Urine Glucose (UA) Neg mg/dL (Negative) 12/19/21 Unknown Urine Ketones Neg mg/dL (Negative) 12/19/21 Unknown Urine Blood Neg (Negative) 12/19/21 Unknown Urine Nitrite Neg (Negative) 12/19/21 Unknown Urine Bilirubin Neg (Negative) 12/19/21 Unknown Urine Urobilinogen < 2.0 mg/dL (<2.0) 12/19/21 Unknown Ur Leukocyte Esterase Neg (Negative) 12/19/21 Unknown Urine WBC (Auto) < 1.0 /HPF (0.0-6.0) 12/19/21 Unknown Urine RBC (Auto) < 1.0 /HPF (0.0-6.0) 12/19/21 Unknown Urine Opiates Screen Negative 12/19/21 Unknown Urine Methadone Screen Negative 12/19/21 Unknown Ur Barbiturates Screen Negative 12/19/21 Unknown Ur Phencyclidine Scrn Negative 12/19/21 Unknown Ur Amphetamines Screen Negative 12/19/21 Unknown U Benzodiazepines Scrn Negative 12/19/21 Unknown Urine Cocaine Screen Negative 12/19/21 Unknown U Marijuana (THC) Screen Negative 12/19/21 Unknown Drugs of Abuse Note Disclamer 12/19/21 Unknown Fontanez/IV: Voiding Method Self-Catheterization Active Medications - Current Medications Current Medications: Generic Name Dose Route Start Last Admin Trade Name Freq PRN Reason Stop Dose Admin Acetaminophen 650 mg 12/18/21 19:25 Acetaminophen 325 Mg Tab PO Q4H PRN Pain MILD(1-3)/Fever >100.5/HOLLOWAY Aspirin 325 mg 12/20/21 10:00 Aspirin 325 Mg Tab PO QDAY MIYA Atorvastatin Calcium 40 mg 12/18/21 22:00 12/18/21 22:45 Atorvastatin 40 Mg Tab PO 40 mg QHS MIYA Administration Docusate Sodium 100 mg 12/19/21 22:00 Docusate Sodium 100 Mg Cap PO BID MIYA Heparin Sodium (Porcine) 5,000 unit 12/19/21 22:00 Heparin 5,000 Unit/1 Ml Vial SUB-Q Q8HR MIYA Metoclopramide HCl 10 mg 12/18/21 19:29 Metoclopramide 10 Mg/2 Ml Inj IV Q6H PRN Nausea And Vomiting Ondansetron HCl 4 mg 12/18/21 19:25 Ondansetron 4 Mg/2 Ml Inj IV Q3H PRN Nausea And Vomiting Oxycodone/Acetaminophen 1 tab 12/18/21 19:29 Oxycodone /Acetaminophen 5-325mg Tab PO Q6H PRN Pain, Moderate (4-6) Sodium Chloride 10 ml 12/18/21 22:00 12/19/21 09:55 Sodium Chloride 0.9% 10 Ml Flush Syringe IV 10 ml BID MIYA Administration Sodium Chloride 10 ml 12/18/21 19:25 Sodium Chloride 0.9% 10 Ml Flush Syringe IV PRN PRN LINE FLUSH <DOROTHY SILVESTRE - Last Filed: 12/20/21 07:16> Assessment and Plan Assessment and plan: I saw and evaluated the patient. I agree with the findings and the plan of care as documented in the Nurse Practitioner's~note, with the following corrections and additions. Hospitalist Physical - Constitutional Vitals: Temp Pulse Resp BP Pulse Ox 97.4 F L 92 H 18 132/83 100 12/19/21 21:08 12/19/21 22:00 12/20/21 03:23 12/19/21 21:08 12/20/21 03:23 HEART Score - HEART Score Troponin: Troponin T < 0.010 ng/mL (0.00-0.029) 12/18/21 14:54 Results - Labs CBC & Chem 7: 12/19/21 04:45 12/19/21 04:45 Labs: Laboratory Last Values WBC 5.0 K/mm3 (4.5-11.0) 12/19/21 04:45 RBC 3.97 M/mm3 (3.65-5.03) 12/19/21 04:45 Hgb 11.6 gm/dl (11.8-15.2) L 12/19/21 04:45 Hct 36.7 % (35.5-45.6) 12/19/21 04:45 MCV 93 fl (84-94) 12/19/21 04:45 MCH 29 pg (28-32) 12/19/21 04:45 MCHC 32 % (32-34) 12/19/21 04:45 RDW 13.1 % (13.2-15.2) L 12/19/21 04:45 Plt Count 190 K/mm3 (140-440) 12/19/21 04:45 Lymph % (Auto) 26.2 % (13.4-35.0) 12/19/21 04:45 [place] % (Auto) 9.2 % (0.0-7.3) H 12/19/21 04:45 Eos % (Auto) 6.8 % (0.0-4.3) H 12/19/21 04:45 Baso % (Auto) 1.2 % (0.0-1.8) 12/19/21 04:45 Lymph # (Auto) 1.3 K/mm3 (1.2-5.4) 12/19/21 04:45 [place] # (Auto) 0.5 K/mm3 (0.0-0.8) 12/19/21 04:45 Eos # (Auto) 0.3 K/mm3 (0.0-0.4) 12/19/21 04:45 Baso # (Auto) 0.1 K/mm3 (0.0-0.1) 12/19/21 04:45 Seg Neutrophils % 56.6 % (40.0-70.0) 12/19/21 04:45 Seg Neutrophils # 2.8 K/mm3 (1.8-7.7) 12/19/21 04:45 PT 13.0 Sec. (12.2-14.9) 12/18/21 14:54 INR 0.88 (0.87-1.13) 12/18/21 14:54 APTT 31.4 Sec. (24.2-36.6) 12/18/21 14:54 Thrombin Time 17.0 Sec. (15.1-19.6) 12/18/21 14:54 Sodium 140 mmol/L (137-145) 12/19/21 04:45 Potassium 4.0 mmol/L (3.6-5.0) 12/19/21 04:45 Chloride 106.2 mmol/L (98-107) 12/19/21 04:45 Carbon Dioxide 23 mmol/L (22-30) 12/19/21 04:45 Anion Gap 15 mmol/L 12/19/21 04:45 BUN 15 mg/dL (9-20) 12/19/21 04:45 Creatinine 0.7 mg/dL (0.8-1.3) L 12/19/21 04:45 Estimated GFR > 60 ml/min 12/19/21 04:45 BUN/Creatinine Ratio 21 % 12/19/21 04:45 Glucose 92 mg/dL (75-100) 12/19/21 04:45 POC Glucose 88 mg/dL (70-105) 12/18/21 14:45 Calcium 8.6 mg/dL (8.4-10.2) 12/19/21 04:45 Total Bilirubin 0.30 mg/dL (0.1-1.2) 12/19/21 04:45 AST 10 units/L (5-40) 12/19/21 04:45 ALT 7 units/L (7-56) 12/19/21 04:45 Alkaline Phosphatase 61 units/L (35-129) 12/19/21 04:45 Total Creatine Kinase 93 units/L (55-170) 12/18/21 14:54 CK-MB (CK-2) 2.1 ng/mL (0.0-4.0) 12/18/21 14:54 CK-MB (CK-2) Rel Index 2.2 (0-4) 12/18/21 14:54 Troponin T < 0.010 ng/mL (0.00-0.029) 12/18/21 14:54 Total Protein 6.0 g/dL (6.3-8.2) L 12/19/21 04:45 Albumin 3.4 g/dL (3.9-5) L 12/19/21 04:45 Albumin/Globulin Ratio 1.3 % 12/19/21 04:45 Triglycerides 37 mg/dL (2-149) 12/19/21 04:45 Cholesterol 102 mg/dL (50-199) 12/19/21 04:45 LDL Cholesterol Direct 44 mg/dL (50-130) L 12/19/21 04:45 HDL Cholesterol 58 mg/dL (40-59) 12/19/21 04:45 Cholesterol/HDL Ratio 1.75 % 12/19/21 04:45 Urine Color Yellow (Yellow) 12/19/21 Unknown Urine Turbidity Clear (Clear) 12/19/21 Unknown Urine pH 7.0 (5.0-7.0) 12/19/21 Unknown Ur Specific [place] 1.020 (1.003-1.030) 12/19/21 Unknown Urine Protein <15 mg/dl mg/dL (Negative) 12/19/21 Unknown Urine Glucose (UA) Neg mg/dL (Negative) 12/19/21 Unknown Urine Ketones Neg mg/dL (Negative) 12/19/21 Unknown Urine Blood Neg (Negative) 12/19/21 Unknown Urine Nitrite Neg (Negative) 12/19/21 Unknown Urine Bilirubin Neg (Negative) 12/19/21 Unknown Urine Urobilinogen < 2.0 mg/dL (<2.0) 12/19/21 Unknown Ur Leukocyte Esterase Neg (Negative) 12/19/21 Unknown Urine WBC (Auto) < 1.0 /HPF (0.0-6.0) 12/19/21 Unknown Urine RBC (Auto) < 1.0 /HPF (0.0-6.0) 12/19/21 Unknown Urine Opiates Screen Negative 12/19/21 Unknown Urine Methadone Screen Negative 12/19/21 Unknown Ur Barbiturates Screen Negative 12/19/21 Unknown Ur Phencyclidine Scrn Negative 12/19/21 Unknown Ur Amphetamines Screen Negative 12/19/21 Unknown U Benzodiazepines Scrn Negative 12/19/21 Unknown Urine Cocaine Screen Negative 12/19/21 Unknown U Marijuana (THC) Screen Negative 12/19/21 Unknown Drugs of Abuse Note Disclamer 12/19/21 Unknown Fontanez/IV: Voiding Method Self-Catheterization Active Medications - Current Medications Current Medications: Generic Name Dose Route Start Last Admin Trade Name Arielq PRN Reason Stop Dose Admin Acetaminophen 650 mg 12/18/21 19:25 Acetaminophen 325 Mg Tab PO Q4H PRN Pain MILD(1-3)/Fever >100.5/HOLLOWAY Aspirin 325 mg 12/20/21 10:00 Aspirin 325 Mg Tab PO QDAY [facility] Atorvastatin Calcium 40 mg 12/18/21 22:00 12/19/21 21:27 Atorvastatin 40 Mg Tab PO 40 mg QHS MIYA Administration Docusate Sodium 100 mg 12/19/21 22:00 12/19/21 21:25 Docusate Sodium 100 Mg Cap PO 100 mg BID [facility] Administration Heparin Sodium (Porcine) 5,000 unit 12/19/21 22:00 12/20/21 06:13 Heparin 5,000 Unit/1 Ml Vial SUB-Q 5,000 unit Q8HR MIYA Administration Metoclopramide HCl 10 mg 12/18/21 19:29 Metoclopramide 10 Mg/2 Ml Inj IV Q6H PRN Nausea And Vomiting Ondansetron HCl 4 mg 12/18/21 19:25 Ondansetron 4 Mg/2 Ml Inj IV Q3H PRN Nausea And Vomiting Oxycodone/Acetaminophen 1 tab 12/18/21 19:29 Oxycodone /Acetaminophen 5-325mg Tab PO Q6H PRN Pain, Moderate (4-6) Sodium Chloride 10 ml 12/18/21 22:00 12/19/21 21:28 Sodium Chloride 0.9% 10 Ml Flush Syringe IV 10 ml BID MIYA Administration Sodium Chloride 10 ml 12/18/21 19:25 Sodium Chloride 0.9% 10 Ml Flush Syringe IV PRN PRN LINE FLUSH Tamsulosin HCl 0.4 mg 12/19/21 13:00 Tamsulosin 0.4 Mg Cap PO QDAY [facility]
[2021-12-19] MEDS: DOCUSATE SODIUM 100 MG CAP PO SCH (21:25)
[2021-12-19] MEDS: HEPARIN 5,000 UNIT/1 ML VIAL SUB-Q SCH (21:26)
[2021-12-20] MEDS: HEPARIN 5,000 UNIT/1 ML VIAL SUB-Q SCH ×3 (06:13→21:30)
[2021-12-20] MEDS: oxyCODONE /ACETAMINOPHEN 5-325MG TAB PO PRN (09:22)
[2021-12-20] MEDS: TAMSULOSIN 0.4 MG CAP PO SCH (09:23)
[2021-12-20] MEDS: DOCUSATE SODIUM 100 MG CAP PO SCH ×2 (09:23→21:29)
[2021-12-20] MEDS: ASPIRIN 325 MG TAB PO SCH (09:23)
--- NOTE | 2021-12-20 10:30 | Progress Note ---
Assessment and Plan 66 y/o male admitted with stroke like symptoms status post TPA with complete resolution of symptoms 12/20/21: No further critical care or pulmonary needs. Will sign off. Continue q1 hour neuro checks until 1500 Transfer to floor post 24 hour obs period Start ASA therapy post 24 TPA administration Follow up with neurology outpatient as they are not here on the weekends. Subjective Date of service: 12/20/21 Interval history: Successful transfer out of unit. No acute pulmonary issues. Objective - Constitutional Vitals: Vital Signs - 12hr 12/19/21 12/20/21 12/20/21 23:14 00:00 03:23 Respiratory 18 18 Rate O2 Sat by Pulse 98 100 100 Oximetry 12/20/21 04:00 Respiratory 18 Rate O2 Sat by Pulse 100 Oximetry - Labs CBC & Chem 7: 12/19/21 04:45 12/19/21 04:45 Medications & Allergies - Medications Allergies/Adverse Reactions: Allergies No Known Allergies Allergy (Verified 12/18/21 14:41) Home Medications: Home Medications Medication Instructions Recorded Confirmed Last Taken Type Aspirin EC [Aspirin Enteric Coated 81 mg PO QDAY 11/07/14 11/07/14 Unknown History TAB] Tamsulosin [Flomax] 0.4 mg PO QDAY #30 capsule 11/07/14 Unknown Rx Docusate Sodium [Colace] 100 mg PO BID PRN #30 capsule 02/07/15 Unknown Rx Magnesium Citrate [Citrate of 300 ml PO ONCE PRN #1 bottle 02/07/15 Unknown Rx Magnesia] SUMAtriptan SUCCINATE [Imitrex] 100 mg PO PRN PRN #10 tablet 02/07/15 Unknown Rx bisacodyL [Dulcolax suppos] 10 mg ID ONCE #4 supp.rect 12/16/19 Unknown Rx cephALEXin [Keflex] 500 mg PO Q6HR #28 capsule 12/05/21 Unknown Rx traMADoL [Ultram 50 MG tab] 50 mg PO Q6HR PRN #12 tablet 12/05/21 Unknown Rx Active Medications: Generic Name Dose Route Start Last Admin Trade Name Freq PRN Reason Stop Dose Admin Acetaminophen 650 mg 12/18/21 19:25 Acetaminophen 325 Mg Tab PO Q4H PRN Pain MILD(1-3)/Fever >100.5/HOLLOWAY Aspirin 325 mg 12/20/21 10:00 02/27/22 09:23 Aspirin 325 Mg Tab PO 325 mg QDAY MIYA Administration Atorvastatin Calcium 40 mg 12/18/21 22:00 12/19/21 21:27 Atorvastatin 40 Mg Tab PO 40 mg QHS MIYA Administration Docusate Sodium 100 mg 12/19/21 22:00 12/20/21 09:23 Docusate Sodium 100 Mg Cap PO 100 mg BID MIYA Administration Heparin Sodium (Porcine) 5,000 unit 12/19/21 22:00 12/20/21 06:13 Heparin 5,000 Unit/1 Ml Vial SUB-Q 5,000 unit Q8HR MIYA Administration Metoclopramide HCl 10 mg 12/18/21 19:29 Metoclopramide 10 Mg/2 Ml Inj IV Q6H PRN Nausea And Vomiting Ondansetron HCl 4 mg 12/18/21 19:25 Ondansetron 4 Mg/2 Ml Inj IV Q3H PRN Nausea And Vomiting Oxycodone/Acetaminophen 1 tab 12/18/21 19:29 12/20/21 09:22 Oxycodone /Acetaminophen 5-325mg Tab PO 1 tab Q6H PRN Administration Pain, Moderate (4-6) Sodium Chloride 10 ml 12/18/21 22:00 12/20/21 09:24 Sodium Chloride 0.9% 10 Ml Flush Syringe IV 10 ml BID MIYA Administration Sodium Chloride 10 ml 12/18/21 19:25 Sodium Chloride 0.9% 10 Ml Flush Syringe IV PRN PRN LINE FLUSH Tamsulosin HCl 0.4 mg 12/19/21 13:00 12/20/21 09:23 Tamsulosin 0.4 Mg Cap PO 0.4 mg QDAY MIYA Administration HEART Score - HEART Score Troponin: Troponin T < 0.010 ng/mL (0.00-0.029) 12/18/21 14:54
--- NOTE | 2021-12-20 16:25 | Progress Note ---
Assessment and Plan Assessment and plan: This is a 66-year-old male with BPH with a history of self catheterizations, migraine headaches, TIA, anxiety/depression, inguinal hernia repair admitted with ischemic CVA s/p TPA #Acute CVA Status post TPA in ED with significant clinical improvement. Pending MRI brain and TTE -CT head on admit shows no clear CT evidence of acute intracranial process -CTA head/neck shows no significant normality CTA head, no large vessel occlusion, no significant stenosis appreciated in CT of neck Transferred from ICU to general floor after being evaluated for 24 hours with every hour neurochecks Continue aspirin 325 mg daily and atorvastatin 40 mg daily Pending hemoglobin A1c and lipid panel Neurology consulted; pending recs PT/OT consulted; pending recs Continue to monitor #Acute pyelonephritis Bilateral flank tenderness on palpation and patient endorsing dysuria for 2-3 weeks Ordered urinalysis and urine culture Starting Levaquin 500 mg every 24 hours Ordering bilateral renal ultrasound to assess for possible hydronephrosis in the setting of BPH Continue to monitor #Protein calorie malnutrition - nutrition consulted; appreciate recs #BPH -patient self straight caths -continue flomax 0.4mg daily #Advanced care planning -Disease education conducted, care plan discussed, diagnoses discussed, prognosis discussed, and patient acknowledges understanding with care plan -Time: +30 min Disposition Plan: Continue medical management Total Time Spent with Patient (Minutes): 45 min History Interval history: No acute events overnight. Hospitalist Physical - Constitutional Vitals: Temp Pulse Resp BP Pulse Ox 98.0 F 85 20 136/89 98 12/20/21 10:47 12/20/21 10:47 12/20/21 10:47 12/20/21 10:47 12/20/21 12:00 General appearance: Present: no acute distress, well-nourished - EENT Eyes: Present: PERRL, EOM intact ENT: hearing intact, clear oral mucosa - Neck Neck: Present: supple, normal ROM - Respiratory Respiratory effort: normal Respiratory: bilateral: CTA - Cardiovascular Rhythm: regular Heart Sounds: Present: S1 & S2 - Extremities Extremities: no ischemia, pulses intact, pulses symmetrical, No edema, normal temperature, normal color, Full ROM Peripheral Pulses: within normal limits - Abdominal General gastrointestinal: soft, non-tender, non-distended, normal bowel sounds, other (bilateral flank tenderness on palpation) - Integumentary Integumentary: Present: clear, warm, dry - Psychiatric Psychiatric: appropriate mood/affect, cooperative - Neurologic Neurologic: CNII-XII intact, moves all extremities - Allied Health Allied health notes reviewed: nursing HEART Score - HEART Score Troponin: Troponin T < 0.010 ng/mL (0.00-0.029) 12/18/21 14:54 Results - Labs CBC & Chem 7: 12/19/21 04:45 12/19/21 04:45 Labs: Laboratory Last Values WBC 5.0 K/mm3 (4.5-11.0) 12/19/21 04:45 RBC 3.97 M/mm3 (3.65-5.03) 12/19/21 04:45 Hgb 11.6 gm/dl (11.8-15.2) L 12/19/21 04:45 Hct 36.7 % (35.5-45.6) 12/19/21 04:45 MCV 93 fl (84-94) 12/19/21 04:45 MCH 29 pg (28-32) 12/19/21 04:45 MCHC 32 % (32-34) 12/19/21 04:45 RDW 13.1 % (13.2-15.2) L 12/19/21 04:45 Plt Count 190 K/mm3 (140-440) 12/19/21 04:45 Lymph % (Auto) 26.2 % (13.4-35.0) 12/19/21 04:45 [facility] % (Auto) 9.2 % (0.0-7.3) H 12/19/21 04:45 Eos % (Auto) 6.8 % (0.0-4.3) H 12/19/21 04:45 Baso % (Auto) 1.2 % (0.0-1.8) 12/19/21 04:45 Lymph # (Auto) 1.3 K/mm3 (1.2-5.4) 12/19/21 04:45 [facility] # (Auto) 0.5 K/mm3 (0.0-0.8) 12/19/21 04:45 Eos # (Auto) 0.3 K/mm3 (0.0-0.4) 12/19/21 04:45 Baso # (Auto) 0.1 K/mm3 (0.0-0.1) 12/19/21 04:45 Seg Neutrophils % 56.6 % (40.0-70.0) 12/19/21 04:45 Seg Neutrophils # 2.8 K/mm3 (1.8-7.7) 12/19/21 04:45 PT 13.0 Sec. (12.2-14.9) 12/18/21 14:54 INR 0.88 (0.87-1.13) 12/18/21 14:54 APTT 31.4 Sec. (24.2-36.6) 12/18/21 14:54 Thrombin Time 17.0 Sec. (15.1-19.6) 12/18/21 14:54 Sodium 140 mmol/L (137-145) 12/19/21 04:45 Potassium 4.0 mmol/L (3.6-5.0) 12/19/21 04:45 Chloride 106.2 mmol/L (98-107) 12/19/21 04:45 Carbon Dioxide 23 mmol/L (22-30) 12/19/21 04:45 Anion Gap 15 mmol/L 12/19/21 04:45 BUN 15 mg/dL (9-20) 12/19/21 04:45 Creatinine 0.7 mg/dL (0.8-1.3) L 12/19/21 04:45 Estimated GFR > 60 ml/min 12/19/21 04:45 BUN/Creatinine Ratio 21 % 12/19/21 04:45 Glucose 92 mg/dL (75-100) 12/19/21 04:45 POC Glucose 88 mg/dL (70-105) 12/18/21 14:45 Calcium 8.6 mg/dL (8.4-10.2) 12/19/21 04:45 Total Bilirubin 0.30 mg/dL (0.1-1.2) 12/19/21 04:45 AST 10 units/L (5-40) 12/19/21 04:45 ALT 7 units/L (7-56) 12/19/21 04:45 Alkaline Phosphatase 61 units/L (35-129) 12/19/21 04:45 Total Creatine Kinase 93 units/L (55-170) 12/18/21 14:54 CK-MB (CK-2) 2.1 ng/mL (0.0-4.0) 12/18/21 14:54 CK-MB (CK-2) Rel Index 2.2 (0-4) 12/18/21 14:54 Troponin T < 0.010 ng/mL (0.00-0.029) 12/18/21 14:54 Total Protein 6.0 g/dL (6.3-8.2) L 12/19/21 04:45 Albumin 3.4 g/dL (3.9-5) L 12/19/21 04:45 Albumin/Globulin Ratio 1.3 % 12/19/21 04:45 Triglycerides 37 mg/dL (2-149) 12/19/21 04:45 Cholesterol 102 mg/dL (50-199) 12/19/21 04:45 LDL Cholesterol Direct 44 mg/dL (50-130) L 12/19/21 04:45 HDL Cholesterol 58 mg/dL (40-59) 12/19/21 04:45 Cholesterol/HDL Ratio 1.75 % 12/19/21 04:45 Urine Color Yellow (Yellow) 12/19/21 Unknown Urine Turbidity Clear (Clear) 12/19/21 Unknown Urine pH 7.0 (5.0-7.0) 12/19/21 Unknown Ur Specific [place] 1.020 (1.003-1.030) 12/19/21 Unknown Urine Protein <15 mg/dl mg/dL (Negative) 12/19/21 Unknown Urine Glucose (UA) Neg mg/dL (Negative) 12/19/21 Unknown Urine Ketones Neg mg/dL (Negative) 12/19/21 Unknown Urine Blood Neg (Negative) 12/19/21 Unknown Urine Nitrite Neg (Negative) 12/19/21 Unknown Urine Bilirubin Neg (Negative) 12/19/21 Unknown Urine Urobilinogen < 2.0 mg/dL (<2.0) 12/19/21 Unknown Ur Leukocyte Esterase Neg (Negative) 12/19/21 Unknown Urine WBC (Auto) < 1.0 /HPF (0.0-6.0) 12/19/21 Unknown Urine RBC (Auto) < 1.0 /HPF (0.0-6.0) 12/19/21 Unknown Urine Opiates Screen Negative 12/19/21 Unknown Urine Methadone Screen Negative 12/19/21 Unknown Ur Barbiturates Screen Negative 12/19/21 Unknown Ur Phencyclidine Scrn Negative 12/19/21 Unknown Ur Amphetamines Screen Negative 12/19/21 Unknown U Benzodiazepines Scrn Negative 12/19/21 Unknown Urine Cocaine Screen Negative 12/19/21 Unknown U Marijuana (THC) Screen Negative 12/19/21 Unknown Drugs of Abuse Note Disclamer 12/19/21 Unknown Fontanez/IV: Voiding Method Self-Catheterization Active Medications - Current Medications Current Medications: Generic Name Dose Route Start Last Admin Trade Name Freq PRN Reason Stop Dose Admin Acetaminophen 650 mg 12/18/21 19:25 Acetaminophen 325 Mg Tab PO Q4H PRN Pain MILD(1-3)/Fever >100.5/HOLLOWAY Aspirin 325 mg 12/20/21 10:00 12/20/21 09:23 Aspirin 325 Mg Tab PO 325 mg QDAY MIYA Administration Atorvastatin Calcium 40 mg 12/18/21 22:00 12/19/21 21:27 Atorvastatin 40 Mg Tab PO 40 mg QHS MIYA Administration Docusate Sodium 100 mg 12/19/21 22:00 12/20/21 09:23 Docusate Sodium 100 Mg Cap PO 100 mg BID MIYA Administration Heparin Sodium (Porcine) 5,000 unit 12/19/21 22:00 12/20/21 06:13 Heparin 5,000 Unit/1 Ml Vial SUB-Q 5,000 unit Q8HR MIYA Administration Levofloxacin/Dextrose 500 mg in 100 mls @ 100 mls/hr 12/20/21 14:00 Levaquin 500mg/100ml IV Q24H [facility] Protocol Metoclopramide HCl 10 mg 12/18/21 19:29 Metoclopramide 10 Mg/2 Ml Inj IV Q6H PRN Nausea And Vomiting Ondansetron HCl 4 mg 12/18/21 19:25 Ondansetron 4 Mg/2 Ml Inj IV Q3H PRN Nausea And Vomiting Oxycodone/Acetaminophen 1 tab 12/18/21 19:29 12/20/21 09:22 Oxycodone /Acetaminophen 5-325mg Tab PO 1 tab Q6H PRN Administration Pain, Moderate (4-6) Sodium Chloride 10 ml 12/18/21 22:00 12/20/21 09:24 Sodium Chloride 0.9% 10 Ml Flush Syringe IV 10 ml BID MIYA Administration Sodium Chloride 10 ml 12/18/21 19:25 Sodium Chloride 0.9% 10 Ml Flush Syringe IV PRN PRN LINE FLUSH Tamsulosin HCl 0.4 mg 12/19/21 13:00 12/20/21 09:23 Tamsulosin 0.4 Mg Cap PO 0.4 mg QDAY MIYA Administration
[2021-12-20 19:12] LABS: BUN/Creatinine Ratio 18; Blood Urea Nitrogen 14 mg/dL (9-20); Calcium 8.4 mg/dL (8.4-10.2); Hemolysis Index 1
[2021-12-20 21:07] LABS: Bacteria,Urine 1+ /HPF (Negative); Bilirubin,Urine NEG (Negative); Blood,Urine NEG (Negative); Color,Urine Yellow (Yellow); Mucus,Urine 1+ /HPF; Protein,Urine <15 mg/dL mg/dL (Negative); Urobilinogen,Urine < 2.0 mg/dL (<2.0)
[2021-12-21] MEDS: HEPARIN 5,000 UNIT/1 ML VIAL SUB-Q SCH ×3 (05:44→21:44)
--- NOTE | 2021-12-21 06:52 | Vascular Lab Report ---
"DUPLEX DOPPLER ULTRASOUND CAROTID, BILATERAL INDICATION: stroke. COMPARISON: CTA neck same day. FINDINGS: RIGHT CAROTID: No significant atherosclerotic plaque. CCA velocity: 140 cm/sec. ICA peak systolic velocity: 135 cm/sec. ICA/CCA PSV Ratio: Less than 2. Right Vertebral Artery: Antegrade flow. LEFT CAROTID: No significant atherosclerotic plaque. CCA velocity: 147 cm/sec. ICA peak systolic velocity: 126 cm/sec. ICA/CCA PSV Ratio: Less than 2. Left Vertebral Artery: Antegrade flow. IMPRESSION: 1. Right Internal Carotid Artery: Normal. 2. Left Internal Carotid Artery: Normal. Velocity criteria are extrapolated from diameter data as defined by the Society of Radiologists in Ul trasound Consensus Conference, Radiology 2003; 229;340-346. Degree of || ICA PSV || Plaque || ICA/CCA Stenosis (%) || (cm/sec) || estimate (%) || PSV Ratio - Normal...............<125..............None.................<2.0 - <50....................<125..............<50....................<2.0 - 50-69................125-230.........>50....................2.0-4.0 - >70 but <100....>230..............>50....................>4.0 - Near...................High, low, .....visible................variable occlusion or none - Total...................None.............visible;................N/A occlusion no lumen Signer Name: Joe Limon MD Signed: 12/21/2021 6:48 AM Workstation Name: [id number]"
[2021-12-21 07:12] LABS: Basophils # (Auto) 0.1 K/mm3 (0.0-0.1); Basophils % (Auto) 1.1 % (0.0-1.8); Eosinophils # (Auto) 0.5 K/mm3 (0.0-0.4); Eosinophils % (Auto) 10.5 % (0.0-4.3); Hematocrit 34.4 % (35.5-45.6); Hemoglobin 11.7 gm/dl (11.8-15.2); Lymphocytes # (Auto) 1.3 K/mm3 (1.2-5.4); Lymphocytes % (Auto) 25.1 % (13.4-35.0); Mean Corpuscular HGB Conc 34 % (32-34); Mean Corpuscular Volume 91 fl (84-94); Monocytes # (Auto) 0.4 K/mm3 (0.0-0.8); Monocytes % (Auto) 8.3 % (0.0-7.3); Platelet Count 192 K/mm3 (140-440); Red Blood Count 3.77 M/mm3 (3.65-5.03); Red Cell Distribution Width 13.3 % (13.2-15.2)
[2021-12-21 07:20] LABS: BUN/Creatinine Ratio 14; Blood Urea Nitrogen 11 mg/dL (9-20); Calcium 8.5 mg/dL (8.4-10.2); Hemolysis Index 13
[2021-12-21] MEDS: TAMSULOSIN 0.4 MG CAP PO SCH (10:10)
[2021-12-21] MEDS: ASPIRIN 325 MG TAB PO SCH (10:10)
[2021-12-21] MEDS: DOCUSATE SODIUM 100 MG CAP PO SCH ×2 (10:10→21:44)
--- NOTE | 2021-12-21 10:38 | Progress Note ---
Assessment and Plan Assessment and plan: This is a 66-year-old male with BPH with a history of self catheterizations, migraine headaches, TIA, anxiety/depression, inguinal hernia repair admitted with ischemic CVA s/p TPA #Acute CVA Status post TPA in ED with significant clinical improvement. Pending MRI brain and TTE -CT head on admit shows no clear CT evidence of acute intracranial process -CTA head/neck shows no significant normality CTA head, no large vessel occlusion, no significant stenosis appreciated in CT of neck Transferred from ICU to general floor after being evaluated for 24 hours with every hour neurochecks Continue aspirin 325 mg daily and atorvastatin 40 mg daily Pending hemoglobin A1c and lipid panel Neurology consulted; pending recs PT/OT consulted; recommending acute rehab Continue to monitor #Acute pyelonephritis Bilateral flank tenderness on palpation and patient endorsing dysuria for 2-3 weeks Ordered urinalysis and urine culture Continue Levaquin 500 mg every 24 hours Pending bilateral renal ultrasound to assess for possible hydronephrosis in the setting of BPH Continue to monitor #Protein calorie malnutrition - nutrition consulted; appreciate recs #BPH -patient self straight caths -continue flomax 0.4mg daily #Advanced care planning -Disease education conducted, care plan discussed, diagnoses discussed, prognosis discussed, and patient acknowledges understanding with care plan -Time: +30 min Disposition Plan: Continue medical management Total Time Spent with Patient (Minutes): 45 min History Interval history: No acute events overnight Hospitalist Physical - Constitutional Vitals: Temp Pulse Resp BP Pulse Ox 98.3 F 78 20 132/83 98 12/21/21 04:12 12/21/21 04:12 12/20/21 22:35 12/21/21 04:12 12/20/21 22:35 General appearance: Present: no acute distress, well-nourished - EENT Eyes: Present: PERRL, EOM intact ENT: hearing intact, clear oral mucosa, dentition normal - Neck Neck: Present: supple, normal ROM - Respiratory Respiratory effort: normal Respiratory: bilateral: CTA - Cardiovascular Rhythm: regular Heart Sounds: Present: S1 & S2 - Extremities Extremities: no ischemia, pulses intact, pulses symmetrical, No edema, normal temperature, normal color, Full ROM Peripheral Pulses: within normal limits - Abdominal General gastrointestinal: soft, non-tender, non-distended, normal bowel sounds, other (Bilateral flank tenderness on moderate palpation) - Integumentary Integumentary: Present: clear, warm, dry - Psychiatric Psychiatric: appropriate mood/affect, cooperative - Neurologic Neurologic: CNII-XII intact, moves all extremities - Allied Health Allied health notes reviewed: nursing HEART Score - HEART Score Troponin: Troponin T < 0.010 ng/mL (0.00-0.029) 12/18/21 14:54 Results - Labs CBC & Chem 7: 12/21/21 06:29 12/21/21 06:29 Labs: Laboratory Last Values WBC 5.1 K/mm3 (4.5-11.0) 12/21/21 06:29 RBC 3.77 M/mm3 (3.65-5.03) 12/21/21 06: Hgb 11.7 gm/dl (11.8-15.2) L 12/21/21 06:29 Hct 34.4 % (35.5-45.6) L 12/21/21 06:29 MCV 91 fl (84-94) 12/21/21 06:29 MCH 31 pg (28-32) 12/21/21 06:29 MCHC 34 % (32-34) 12/21/21 06:29 RDW 13.3 % (13.2-15.2) 12/21/21 06:29 Plt Count 192 K/mm3 (140-440) 12/21/21 06:29 Lymph % (Auto) 25.1 % (13.4-35.0) 12/21/21 06:29 [place] % (Auto) 8.3 % (0.0-7.3) H 12/21/21 06:29 Eos % (Auto) 10.5 % (0.0-4.3) H 12/21/21 06:29 Baso % (Auto) 1.1 % (0.0-1.8) 12/21/21 06: Lymph # (Auto) 1.3 K/mm3 (1.2-5.4) 12/21/21 06:29 [place] # (Auto) 0.4 K/mm3 (0.0-0.8) 12/21/21 06:29 Eos # (Auto) 0.5 K/mm3 (0.0-0.4) H 12/21/21 06:29 Baso # (Auto) 0.1 K/mm3 (0.0-0.1) 12/21/21 06:29 Seg Neutrophils % 55.0 % (40.0-70.0) 12/21/21 06:29 Seg Neutrophils # 2.8 K/mm3 (1.8-7.7) 12/21/21 06:29 PT 13.0 Sec. (12.2-14.9) 12/18/21 14:54 INR 0.88 (0.87-1.13) 12/18/21 14:54 APTT 31.4 Sec. (24.2-36.6) 12/18/21 14:54 Thrombin Time 17.0 Sec. (15.1-19.6) 12/18/21 14:54 Sodium 136 mmol/L (137-145) L 12/21/21 06:29 Potassium 3.5 mmol/L (3.6-5.0) L 12/21/21 06:29 Chloride 101.7 mmol/L (98-107) 12/21/21 06:29 Carbon Dioxide 22 mmol/L (22-30) 12/21/21 06:29 Anion Gap 16 mmol/L 12/21/21 06:29 BUN 11 mg/dL (9-20) 12/21/21 06:29 Creatinine 0.8 mg/dL (0.8-1.3) 12/21/21 06:29 Estimated GFR > 60 ml/min 12/21/21 06:29 BUN/Creatinine Ratio 14 % 12/21/21 06:29 Glucose 107 mg/dL (75-100) H 12/21/21 06:29 POC Glucose 88 mg/dL (70-105) 12/18/21 14:45 Calcium 8.5 mg/dL (8.4-10.2) 12/21/21 06:29 Total Bilirubin 0.30 mg/dL (0.1-1.2) 12/19/21 04:45 AST 10 units/L (5-40) 12/19/21 04:45 ALT 7 units/L (7-56) 12/19/21 04:45 Alkaline Phosphatase 61 units/L (35-129) 12/19/21 04:45 Total Creatine Kinase 93 units/L (55-170) 12/18/21 14:54 CK-MB (CK-2) 2.1 ng/mL (0.0-4.0) 12/18/21 14:54 CK-MB (CK-2) Rel Index 2.2 (0-4) 12/18/21 14:54 Troponin T < 0.010 ng/mL (0.00-0.029) 12/18/21 14:54 Total Protein 6.0 g/dL (6.3-8.2) L 12/19/21 04:45 Albumin 3.4 g/dL (3.9-5) L 12/19/21 04:45 Albumin/Globulin Ratio 1.3 % 12/19/21 04:45 Triglycerides 37 mg/dL (2-149) 12/19/21 04:45 Cholesterol 102 mg/dL (50-199) 12/19/21 04:45 LDL Cholesterol Direct 44 mg/dL (50-130) L 12/19/21 04:45 HDL Cholesterol 58 mg/dL (40-59) 12/19/21 04:45 Cholesterol/HDL Ratio 1.75 % 12/19/21 04:45 Urine Color Yellow (Yellow) 12/20/21 20:00 Urine Turbidity Slightly-cloudy (Clear) 12/20/21 20:00 Urine pH 5.0 (5.0-7.0) 12/20/21 20:00 Ur Specific [place] 1.017 (1.003-1.030) 12/20/21 20:00 Urine Protein <15 mg/dl mg/dL (Negative) 12/20/21 20:00 Urine Glucose (UA) Neg mg/dL (Negative) 12/20/21 20:00 Urine Ketones Neg mg/dL (Negative) 12/20/21 20:00 Urine Blood Neg (Negative) 12/20/21 20:00 Urine Nitrite Neg (Negative) 12/20/21 20:00 Urine Bilirubin Neg (Negative) 12/20/21 20:00 Urine Urobilinogen < 2.0 mg/dL (<2.0) 12/20/21 20:00 Ur Leukocyte Esterase Lg (Negative) 12/20/21 20:00 Urine WBC (Auto) 53.0 /HPF (0.0-6.0) H 12/20/21 20:00 Urine RBC (Auto) 9.0 /HPF (0.0-6.0) 12/20/21 20:00 U Epithel Cells (Auto) < 1.0 /HPF (0-13.0) 12/20/21 20:00 Urine Bacteria (Auto) 1+ /HPF (Negative) 12/20/21 20:00 Urine Mucus 1+ /HPF 12/20/21 20:00 Urine Opiates Screen Negative 12/19/21 Unknown Urine Methadone Screen Negative 12/19/21 Unknown Ur Barbiturates Screen Negative 12/19/21 Unknown Ur Phencyclidine Scrn Negative 12/19/21 Unknown Ur Amphetamines Screen Negative 12/19/21 Unknown U Benzodiazepines Scrn Negative 12/19/21 Unknown Urine Cocaine Screen Negative 12/19/21 Unknown U Marijuana (THC) Screen Negative 12/19/21 Unknown Drugs of Abuse Note Disclamer 12/19/21 Unknown Fontanez/IV: Voiding Method Self-Catheterization Active Medications - Current Medications Current Medications: Generic Name Dose Route Start Last Admin Trade Name Freq PRN Reason Stop Dose Admin Acetaminophen 650 mg 12/18/21 19:25 Acetaminophen 325 Mg Tab PO Q4H PRN Pain MILD(1-3)/Fever >100.5/HOLLOWAY Aspirin 325 mg 12/20/21 10:00 12/21/21 10:10 Aspirin 325 Mg Tab PO 325 mg QDAY MIYA Administration Atorvastatin Calcium 40 mg 12/18/21 22:00 12/20/21 21:29 Atorvastatin 40 Mg Tab PO 40 mg QHS MIYA Administration Docusate Sodium 100 mg 12/19/21 22:00 12/21/21 10:10 Docusate Sodium 100 Mg Cap PO 100 mg BID MIYA Administration Heparin Sodium (Porcine) 5,000 unit 12/19/21 22:00 12/21/21 05:44 Heparin 5,000 Unit/1 Ml Vial SUB-Q Not Given Q8HR MIYA Levofloxacin/Dextrose 500 mg in 100 mls @ 100 mls/hr 12/20/21 14:00 12/20/21 15:00 Levaquin 500mg/100ml IV 100 mls/hr Q24H MIYA Administration Protocol Metoclopramide HCl 10 mg 12/18/21 19:29 Metoclopramide 10 Mg/2 Ml Inj IV Q6H PRN Nausea And Vomiting Ondansetron HCl 4 mg 12/18/21 19:25 Ondansetron 4 Mg/2 Ml Inj IV Q3H PRN Nausea And Vomiting Oxycodone/Acetaminophen 1 tab 12/18/21 19:29 12/20/21 09:22 Oxycodone /Acetaminophen 5-325mg Tab PO 1 tab Q6H PRN Administration Pain, Moderate (4-6) Sodium Chloride 10 ml 12/18/21 22:00 12/21/21 10:10 Sodium Chloride 0.9% 10 Ml Flush Syringe IV 10 ml BID MIYA Administration Sodium Chloride 10 ml 12/18/21 19:25 Sodium Chloride 0.9% 10 Ml Flush Syringe IV PRN PRN LINE FLUSH Tamsulosin HCl 0.4 mg 12/19/21 13:00 12/21/21 10:10 Tamsulosin 0.4 Mg Cap PO 0.4 mg QDAY MIYA Administration
--- NOTE | 2021-12-21 11:55 | Magnetic Resonance Report ---
MRI BRAIN WITHOUT CONTRAST INDICATION / CLINICAL INFORMATION: stroke, HEADACHES. TECHNIQUE: Multiplanar, multisequence MR images of the brain were obtained. COMPARISON: Head CT on 12/18/2021. FINDINGS: BRAIN / INTRACRANIAL CONTENTS: No acute ischemia, acute hemorrhage, mass effect, midline shift, or hy drocephalus. No chronic infarct or significant atrophy. No significant demyelinating changes. CRANIOCERVICAL JUNCTION: No significant abnormality. VASCULAR FLOW-VOIDS: No significant abnormality. ORBITS: No significant abnormality of visualized orbits. SINUSES / MASTOIDS: No significant abnormality of visualized sinuses and mastoid air cells. ADDITIONAL FINDINGS: None. IMPRESSION: 1. No acute intracranial abnormality. No findings to explain the patient's symptoms. Signer Name: Lavon Salazar MD Signed: 12/21/2021 11:50 AM Workstation Name: [email or web address]
--- NOTE | 2021-12-21 15:09 | Ultrasound Report ---
ULTRASOUND RENAL INDICATION / CLINICAL INFORMATION: Assess for possible hydronephrosis. COMPARISON: CT abdomen/pelvis 12/05/2021. FINDINGS: RIGHT KIDNEY: Length = 10.9 cm. - Echogenicity: Normal. - Parenchymal Thickness: Normal. - Hydronephrosis: None. - Cyst / Mass: Multiple simple appearing cysts. The largest measures 1.3 cm within the upper pole, un changed. - Stones: None seen. LEFT KIDNEY: Length = 10.2 cm. - Echogenicity: Normal. - Parenchymal Thickness: Normal. - Hydronephrosis: None. - Cyst / Mass: Simple appearing midpole cyst measuring 1.7 cm. - Stones: None seen. URINARY BLADDER: No significant abnormality. FREE FLUID: None. ADDITIONAL FINDINGS: Incidental finding of a small right pleural effusion. IMPRESSION: 1. Bilateral simple renal cysts, as above. No evidence of hydronephrosis. 2. Incidental finding of a small right pleural effusion. Scribed by: Pari Horn RDMS, KIMBERLY, ODILON Scribed: 12/21/2021 1:19 PM I have reviewed the images, agree with this report, and edited this report as needed. Signer Name: Des Lester MD Signed: 12/21/2021 3:05 PM Workstation Name: [email or web address]
[2021-12-21] MEDS: oxyCODONE /ACETAMINOPHEN 5-325MG TAB PO PRN (21:52)
[2021-12-22 04:28] VITALS: BP 130/79
[2021-12-22] MEDS: HEPARIN 5,000 UNIT/1 ML VIAL SUB-Q SCH ×2 (06:00→14:07)
[2021-12-22 07:13] LABS: BUN/Creatinine Ratio 13; Blood Urea Nitrogen 10 mg/dL (9-20); Hemolysis Index 5
[2021-12-22] MEDS: ASPIRIN 325 MG TAB PO SCH (09:49)
[2021-12-22] MEDS: TAMSULOSIN 0.4 MG CAP PO SCH (09:49)
[2021-12-22] MEDS: DOCUSATE SODIUM 100 MG CAP PO SCH (09:50)
--- NOTE | 2021-12-22 13:59 | Discharge Summary ---
Providers - Providers Date of Admission: 12/18/21 19:25 Attending physician: LAYNE MARTINEZ MD 12/18/21 19:39 Occupational Therapy Evaluate and Treat [CONS] Routine Comment: Reason For Exam: Neuro deficits Physical Therapy Evaluation and Treat [CONS] Routine Comment: Reason For Exam: Neuro deficits 12/18/21 19:50 Occupational Therapy Evaluate and Treat [CONS] Routine Comment: Reason For Exam: Neuro deficits 12/20/21 07:39 Consult to Physician [CONS] Routine Comment: Consulting Provider: TIFFANY GALLEGOS Physician Instructions: Reason For Exam: Acute CVA s/p TPA Primary care physician: [employer] Hospitalization Condition: Critical Disposition: 30 STILL A PATIENT Exam - Constitutional Vitals: Temp Pulse Resp BP Pulse Ox 98.1 F 80 18 130/79 96 12/22/21 04:27 12/22/21 04:27 12/22/21 04:27 12/22/21 04:27 12/22/21 10:00 Plan Care Plan Goals: Please establish care with a primary care doctor within 1 week. Bring a list of your updated medications. We recommend neurology follow-up for stroke within 1 month. Make sure to take Flomax as prescribed. Follow up with: PRIMARY CARE, [Primary Care Provider] - 3-5 Days Prescriptions: AtorvaSTATin [Lipitor] 40 mg PO QHS 30 Days #30 tablet Aspirin 325 mg PO QDAY 30 Days #30 tablet Tamsulosin [Flomax] 0.4 mg PO QDAY 30 Days #30 capsule levoFLOXacin [Levaquin TAB] 750 mg PO QDAY 5 Days #5 tablet
== END 2021-12-22 15:05 | disposition home health service (06) | DRG 62 ==
LOC: ED 14:30 → CC1 19:25 → 3A 12-19 16:58
PROVIDERS: ADMIT Internal Medicine; ATTEND Student in an Organized Health Care Education/Training Program
DX: I63.9 Cerebral infarction, unspecified (principal); N10 Acute pyelonephritis; E46 Unspecified protein-calorie malnutrition; G81.94 Hemiplegia, unspecified affecting left nondominant side; Z68.23 Body mass index [BMI] 23.0-23.9, adult; Z79.82 Long term (current) use of aspirin; Z20.822 Contact with and (suspected) exposure to COVID-19; N40.0 Benign prostatic hyperplasia without lower urinary tract symptoms; G43.909 Migraine, unspecified, not intractable, without status migrainosus; F41.9 Anxiety disorder, unspecified; F32.9 Major depressive disorder, single episode, unspecified
CPT/HCPCS: 36415; 70450; 70496; 70498; 70551; 71045; 76770; 80048; 80053; 80061; 80307; 81001; 82550; 82553; 82962; 84484; 85025; 85610; 85670; 85730; 87086; 93005; 93010; 93306; 93880; G0378; Q0162; C8929; J1644; J1956; J2997; J7030; Q9967; U0003

== ENCOUNTER 2022-07-04 03:10 | Emergency (ER) | payer OTHER, MEDICAID ==
[2022-07-04 04:37] LABS: Basophils # (Auto) 0.1 K/mm3 (0.0-0.1); Basophils % (Auto) 1.2 % (0.0-1.8); Eosinophils # (Auto) 0.2 K/mm3 (0.0-0.4); Eosinophils % (Auto) 4.7 % (0.0-4.3); Hemoglobin 12.2 gm/dl (11.8-15.2); Lymphocytes # (Auto) 1.3 K/mm3 (1.2-5.4); Lymphocytes % (Auto) 25.3 % (13.4-35.0); Mean Corpuscular HGB Conc 32 % (32-34); Mean Corpuscular Volume 94 fl (84-94); Monocytes # (Auto) 0.5 K/mm3 (0.0-0.8); Platelet Count 191 K/mm3 (140-440); Red Blood Count 4.05 M/mm3 (3.65-5.03); Red Cell Distribution Width 13.5 % (13.2-15.2)
[2022-07-04 04:51] LABS: Color,Urine Yellow (Yellow)
--- NOTE | 2022-07-04 05:18 | XRay Report ---
XR abdomen 1V ap INDICATION / CLINICAL INFORMATION: ab pain. COMPARISON: Abdominal x-ray 12/05/2021 TECHNIQUE: One view supine AP abdomen. FINDINGS: TUBES / LINES: None. BOWEL GAS PATTERN: No significant abnormality. FREE AIR / EXTRALUMINAL GAS: None seen. ADDITIONAL FINDINGS: No significant additional findings. IMPRESSION: 1. No significant abnormality. Signer Name: Blayne Stacy II, MD Signed: 07/04/2022 5:13 AM Workstation Name: [email or web address]
--- NOTE | 2022-07-04 08:13 | Emergency Department Report ---
Blank Doc - Documentation Documentation: I have came into the room and introduced myself to the patient. After this the patient kept asking me questions about STUDENT SERVICES REP VS. MD and for my last name and questions that was not relevant for the care that needs to be provided to the patient. The patient refused to provide me information what brought the patient to the ED at this time.
--- NOTE | 2022-07-04 08:49 | Emergency Department Report ---
ED Abdominal Pain HPI - General Chief Complaint: Urogenital-Male Stated Complaint: BURING URINATION/KIDNEY PAIN/CONSTIPATION Time Seen by Provider: 07/04/22 07:51 Source: patient Mode of arrival: Ambulatory Limitations: No Limitations - History of Present Illness Initial Comments: This is a 66-year-old male nontoxic, well nourished in appearance, no acute signs of distress presents to the ED with c/o of nausea, lower abdominal pain, dysuria and flank pain several days. Patient denies any vomiting. Patient describes abdominal pain as cramping and aching with level of 8/10 diffuse. Patient denies chest pain, short of breath, fever, hemoptysis, blood in stool, chills, headache, stiff neck, numbness or tingling. Patient denies any d iarrhea. Denies any testicular pain or swelling. Denies any hematuria. Denies any other urinary symptoms. Denies any penile discharge. Stated has some constipation. Denies any blood in stool. Patient denies any recent travels. MD Complaint: abdominal pain -: days(s) Location: LUQ, RUQ Radiation: none Migration to: no migration Severity: mild Severity scale (0 -10): 8 Quality: cramping, aching Consistency: constant Improves With: nothing Worsens With: nothing Associated Symptoms: nausea, constipation, dysuria. denies: vomiting, diarrhea, fever, chills, hematemesis, hematochezia, melena, hematuria, anorexia, syncope - Related Data Home Medications Medication Instructions Recorded Confirmed Last Taken Aspirin EC [Halfprin EC] 81 mg PO QDAY 01/28/22 01/28/22 Unknown Previous Rx's Medication Instructions Recorded Last Taken Type AtorvaSTATin [Lipitor] 40 mg PO QHS 30 Days #30 tablet 12/22/21 Unknown Rx Tamsulosin [Flomax] 0.4 mg PO QDAY 30 Days #30 capsule 12/22/21 Unknown Rx Clopidogrel [Plavix] 75 mg PO QDAY #30 tablet 01/29/22 Unknown Rx levoFLOXacin [Levaquin TAB] 500 mg PO Q24HR #8 tablet 01/29/22 Unknown Rx Dicyclomine [Bentyl] 20 mg PO Q12H PRN #12 tablet 07/04/22 Unknown Rx Ondansetron [Zofran Odt] 4 mg PO Q8HR PRN #12 tab.rapdis 07/04/22 Unknown Rx Allergies Allergy/AdvReac Type Severity Reaction Status Date / Time No Known Allergies Allergy Verified 01/28/22 14:32 ED Review of Systems ROS: Stated complaint: BURING URINATION/KIDNEY PAIN/CONSTIPATION Other details as noted in HPI Comment: All other systems reviewed and negative Constitutional: denies: chills, fever Eyes: denies: eye pain, eye discharge, vision change ENT: denies: ear pain, throat pain Respiratory: denies: cough, shortness of breath, wheezing Cardiovascular: denies: chest pain, palpitations Endocrine: no symptoms reported Gastrointestinal: abdominal pain, nausea, constipation. denies: vomiting, diarrhea, hematemesis, melena, hematochezia Genitourinary: dysuria. denies: urgency, frequency, hematuria, discharge, testicular pain, testicular mass Musculoskeletal: denies: back pain, joint swelling, arthralgia Skin: denies: rash, lesions Neurological: denies: headache, weakness, paresthesias Psychiatric: denies: anxiety, depression Hematological/Lymphatic: denies: easy bleeding, easy bruising ED Past Medical Hx - Past Medical History Hx Hypertension: Yes Hx CVA: Yes Hx Congestive Heart Failure: No Hx Diabetes: No Hx Headaches / Migraines: Yes Hx Seizures: No Hx Asthma: No Hx COPD: No Hx Dementia: No Additional medical history: BPH, complex migraines without headache - Surgical History Additional Surgical History: Right Inguinal Hernia, toes - Social History Smoking Status: Never Smoker Substance Use Type: None - Medications Home Medications: Home Medications Medication Instructions Recorded Confirmed Last Taken Type AtorvaSTATin [Lipitor] 40 mg PO QHS 30 Days #30 tablet 12/22/21 01/28/22 Unknown Rx Tamsulosin [Flomax] 0.4 mg PO QDAY 30 Days #30 capsule 12/22/21 01/28/22 Unknown Rx Aspirin EC [Halfprin EC] 81 mg PO QDAY 01/28/22 01/28/22 Unknown History Clopidogrel [Plavix] 75 mg PO QDAY #30 tablet 01/29/22 Unknown Rx levoFLOXacin [Levaquin TAB] 500 mg PO Q24HR #8 tablet 01/29/22 Unknown Rx Dicyclomine [Bentyl] 20 mg PO Q12H PRN #12 tablet 07/04/22 Unknown Rx Ondansetron [Zofran Odt] 4 mg PO Q8HR PRN #12 tab.rapdis 07/04/22 Unknown Rx ED Physical Exam - General Limitations: No Limitations General appearance: alert, in no apparent distress - Head Head exam: Present: atraumatic, normocephalic - Eye Eye exam: Present: normal appearance - Neck Neck exam: Present: normal inspection, full ROM. Absent: tenderness, meningismus, lymphadenopathy - Respiratory Respiratory exam: Present: normal lung sounds bilaterally. Absent: respiratory distress, wheezes, rales, rhonchi, stridor, chest wall tenderness, accessory muscle use, decreased breath sounds, prolonged expiratory - Cardiovascular Cardiovascular Exam: Present: regular rate, normal rhythm, normal heart sounds. Absent: bradycardia, tachycardia, irregular rhythm, systolic murmur, diastolic murmur, rubs, gallop - GI/Abdominal GI/Abdominal exam: Present: soft, tenderness (lower abdomen bilateral), normal bowel sounds. Absent: distended, guarding, rebound, rigid, diminished bowel sounds - exam: Present: normal inspection. Absent: testicular tenderness, urethral discharge, scrotal swelling, vertical testicular lie, circumcision - Extremities Exam Extremities exam: Present: normal inspection, full ROM - Back Exam Back exam: Present: normal inspection, full ROM, paraspinal tenderness (bilateral lumbar paraspinal). Absent: tenderness, CVA tenderness (R), CVA tenderness (L), muscle spasm, vertebral tenderness, rash noted - Expanded Back Exam Expanded Back exam: Negative Straight Leg Raising: Left, Right - Neurological Exam Neurological exam: Present: alert, oriented X3, normal gait - Psychiatric Psychiatric exam: Present: normal affect, normal mood - Skin Skin exam: Present: warm, dry, intact, normal color. Absent: rash ED Course Vital Signs 07/04/22 07/04/22 07/04/22 04:12 08:33 08:39 Temperature 98.0 F 97.5 F L 97.5 F L Pulse Rate 71 66 66 Respiratory 18 18 18 Rate Blood Pressure 155/89 139/84 Blood Pressure 139/84 [Left] O2 Sat by Pulse 99 99 99 Oximetry - Reevaluation(s) Reevaluation #1: 07/04/22 08:48 Patient is speaking in full sentences with no signs of distress noted. ED Medical Decision Making - Lab Data Result diagrams: 07/04/22 04:20 07/04/22 09:07 Lab Results 07/04/22 07/04/22 07/04/22 Range/Units 04:20 09:07 Unknown WBC 5.2 (4.5-11.0) K/mm3 RBC 4.05 (3.65-5.03) M/mm3 Hgb 12.2 (11.8-15.2) gm/dl Hct 38.0 (35.5-45.6) % MCV 94 (84-94) fl MCH 30 (28-32) pg MCHC 32 (32-34) % RDW 13.5 (13.2-15.2) % Plt Count 191 (140-440) K/mm3 Lymph % (Auto) 25.3 (13.4-35.0) % [place] % (Auto) 9.0 H (0.0-7.3) % Eos % (Auto) 4.7 H (0.0-4.3) % Baso % (Auto) 1.2 (0.0-1.8) % Lymph # (Auto) 1.3 (1.2-5.4) K/mm3 [place] # (Auto) 0.5 (0.0-0.8) K/mm3 Eos # (Auto) 0.2 (0.0-0.4) K/mm3 Baso # (Auto) 0.1 (0.0-0.1) K/mm3 Seg Neutrophils % 59.8 (40.0-70.0) % Seg Neutrophils # 3.1 (1.8-7.7) K/mm3 Sodium 140 (137-145) mmol/L Potassium 4.2 (3.6-5.0) mmol/L Chloride 101.4 (98-107) mmol/L Carbon Dioxide 28 (22-30) mmol/L Anion Gap 15 mmol/L BUN 20 (9-20) mg/dL Creatinine 0.9 (0.8-1.3) mg/dL Estimated GFR > 60 ml/min BUN/Creatinine Ratio 22 % Glucose 74 L (75-100) mg/dL Calcium 9.0 (8.4-10.2) mg/dL Total Bilirubin 0.30 (0.1-1.2) mg/dL AST 18 (5-40) units/L ALT 13 (7-56) units/L Alkaline Phosphatase 74 (35-129) units/L Total Protein 7.1 (6.3-8.2) g/dL Albumin 4.7 (3.9-5) g/dL Albumin/Globulin Ratio 2.0 % Lipase 23 (13-60) units/L Urine Color Yellow (Yellow) Urine Turbidity Slightly cloudy (Clear) Specific [place] (Man) 1.030 (1.003-1.030) Ur Protein (Man) Negative (Negative) mg/dL Ur Ketones (Man) Negative (Negative) Ur Nitrite (Man) Negative (Negative) Ur Reducing Substances Not Reportable Urine Bilirubin (Man) Negative (Negative) Urine Ictotest Not Reportable Leukocyte Esterase (Man) Negative (Negative) Urine WBC (Auto) 2.0 (0.0-6.0) /HPF Urine RBC (Auto) 3.0 (0.0-6.0) /HPF U Epithel Cells (Auto) 1.0 (0-13.0) /HPF Urine RBC (Manual) Negative (Negative) - Radiology Data [facility] [address] [place] [address] Cat Scan Report Signed Patient: MIKEL FARRELL MR#: [id number] : 1955 Acct:[id number] Age/Sex: 66 / M ADM Date: 07/04/22 Loc: ED Attending Dr: Ordering Physician: MATT WEBB NP Date of Service: 07/04/22 Procedure(s): CT abdomen pelvis w con Accession Number(s): [id number] cc: MATT WEBB NP CT ABDOMEN AND PELVIS WITH CONTRAST INDICATION / CLINICAL INFORMATION: abd pain with flank pain. TECHNIQUE: Axial CT images were obtained through the abdomen and pelvis after IV contrast. All CT scans at this location are performed using CT dose reduction for ALARA by means of automated exposure control. COMPARISON: CT abdomen pelvis without IV contrast 12/05/2021 FINDINGS: LOWER CHEST: No significant abnormality. LIVER: Similar multiple cysts throughout the liver. GALLBLADDER: No significant abnormality. BILE DUCTS: No significant abnormality. PANCREAS: No significant abnormality. SPLEEN: No significant abnormality. ADRENALS: No significant abnormality. RIGHT KIDNEY / URETER: There are multiple hypoattenuating lesions within the left kidney. A lesion along the posterior midpole of the right kidney measures 1.2 x 1.9 cm and demonstrates a density higher than expected of a simple cyst (series 2 image 54). It may be slightly increased in size as compared to prior exam dated 12/05/2021. No hydronephrosis or calculus. LEFT KIDNEY / URETER: Multiple simple cysts within the left kidney. No hydronephrosis or calculus. STOMACH / SMALL BOWEL: There are prominent fluid-filled loops of distal small bowel with fecalization of the contents of the ileum. COLON: Large colonic stool burden. APPENDIX: No significant abnormality. PERITONEUM: No free fluid. No free air. No fluid collection. LYMPH NODES: No significant adenopathy. AORTA / ARTERIES: No significant abnormality. IVC / VEINS: No significant abnormality. URINARY BLADDER: Distended with diffuse wall thickening. REPRODUCTIVE ORGANS: Ostomy is enlarged. ADDITIONAL FINDINGS: None. SKELETAL SYSTEM: No significant abnormality. IMPRESSION: 1. Moderately distended and thick-walled bladder with enlarged prostate. Findings may be related to chronic outlet obstruction. Correlation with urinalysis is recommended to evaluate for cystitis. 2. Multiple hypoattenuating lesions throughout the bilateral kidneys. A 1.2 cm lesion along the interpolar right kidney measures above the density expected of a simple cyst is mildly increased in prominence as compared to the prior exam. Dedicated renal mass imaging is recommended. 3. Prominent loops of small bowel with findings of stasis. Findings may be related to constipation and/or enteritis. 4. Large colonic stool burden. Signer Name: Michael Sullivan MD Signed: 07/04/2022 12:07 PM Workstation Name: [id number] Transcribed By: Dictated By: MICHAEL SULLIVAN MD Electronically Authenticated By: MICHAEL SULLIVAN MD Signed Date/Time: 07/04/22 1207 DD/ 1200 TD/TT: - Medical Decision Making This is a 66-year-old male that presents with prostatitis and kidney cysts.. Patient is stable and was examined by me. Labs obtained. UA obtained. CT of abdomen obtained and dictated by the radiologist. Patient is notified of the report with no questions noted by the patient. Vital signs are stable prior to discharge. Patient received medical treatment in the ED which patient stated symptoms has resovled and subsided. Was instructed note to operate any machinery due to possible drowsiness and stated someone will drive the patient home. A by mouth challenge has been obtained and patient tolerated well with no nausea vomiting. Patient was also instructed to Follow-up with a primary care and urologist doctor in 3-5 days or if symptoms worsen and continue return to emergency room as soon as possible. At time of discharge, the patient does not seem toxic or ill in appearance. No acute signs of distress noted. Patient agrees to discharge treatment plan of care. No further questions noted by the patient. Critical care attestation.: If time is entered above; I have spent that time in minutes in the direct care of this critically ill patient, excluding procedure time. ED Disposition Clinical Impression: Flank pain, Kidney cysts Abdominal pain Qualifiers: Abdominal location: unspecified location Qualified Code(s): R10.9 - Unspecified abdominal pain Prostatitis Qualifiers: Prostatitis type: unspecified Qualified Code(s): N41.9 - Inflammatory disease of prostate, unspecified Disposition: 01 HOME / SELF CARE / HOMELESS Is pt being admited?: No Does the pt Need Aspirin: No Condition: Stable Additional Instructions: Follow-up with a primary care and urologist doctor in 3-5 days or if symptoms worsen and continue return to emergency room as soon as possible. Prescriptions: Dicyclomine [Bentyl] 20 mg PO Q12H PRN #12 tablet PRN Reason: abdominal pain Ondansetron [Zofran Odt] 4 mg PO Q8HR PRN #12 tab.rapdis PRN Reason: Nausea Referrals: ARAMIS MUSTAFA MD [Primary Care Provider] - 3-5 Days PRIMARY MD LO [Referring] - 3-5 Days Time of Disposition: 12:31
[2022-07-04 10:17] LABS: Alanine Aminotransferase 13 units/L (7-56); Albumin 4.7 g/dL (3.9-5); BUN/Creatinine Ratio 22; Blood Urea Nitrogen 20 mg/dL (9-20); Hemolysis Index 6
[2022-07-04] MEDS ORDERED: ONDANSETRON 4 MG/2 ML INJ IV ONE (10:26)
[2022-07-04] MEDS ORDERED: MORPHINE 4 MG/1 ML INJ IV ONE (10:26)
[2022-07-04] MEDS ORDERED: SODIUM CHLORIDE 0.9% 1000 ML 1,000 ML IV ONE (10:26)
--- NOTE | 2022-07-04 12:11 | Cat Scan Report ---
CT ABDOMEN AND PELVIS WITH CONTRAST INDICATION / CLINICAL INFORMATION: abd pain with flank pain. TECHNIQUE: Axial CT images were obtained through the abdomen and pelvis after IV contrast. All CT sc ans at this location are performed using CT dose reduction for ALARA by means of automated exposure c ontrol. COMPARISON: CT abdomen pelvis without IV contrast 12/05/2021 FINDINGS: LOWER CHEST: No significant abnormality. LIVER: Similar multiple cysts throughout the liver. GALLBLADDER: No significant abnormality. BILE DUCTS: No significant abnormality. PANCREAS: No significant abnormality. SPLEEN: No significant abnormality. ADRENALS: No significant abnormality. RIGHT KIDNEY / URETER: There are multiple hypoattenuating lesions within the left kidney. A lesion al stone the posterior midpole of the right kidney measures 1.2 x 1.9 cm and demonstrates a density higher than expected of a simple cyst (series 2 image 54). It may be slightly increased in size as compared to prior exam dated 12/05/2021. No hydronephrosis or calculus. LEFT KIDNEY / URETER: Multiple simple cysts within the left kidney. No hydronephrosis or calculus. STOMACH / SMALL BOWEL: There are prominent fluid-filled loops of distal small bowel with fecalization of the contents of the ileum. COLON: Large colonic stool burden. APPENDIX: No significant abnormality. PERITONEUM: No free fluid. No free air. No fluid collection. LYMPH NODES: No significant adenopathy. AORTA / ARTERIES: No significant abnormality. IVC / VEINS: No significant abnormality. URINARY BLADDER: Distended with diffuse wall thickening. REPRODUCTIVE ORGANS: Ostomy is enlarged. ADDITIONAL FINDINGS: None. SKELETAL SYSTEM: No significant abnormality. IMPRESSION: 1. Moderately distended and thick-walled bladder with enlarged prostate. Findings may be related to c hronic outlet obstruction. Correlation with urinalysis is recommended to evaluate for cystitis. 2. Multiple hypoattenuating lesions throughout the bilateral kidneys. A 1.2 cm lesion along the inter polar right kidney measures above the density expected of a simple cyst is mildly increased in promin ence as compared to the prior exam. Dedicated renal mass imaging is recommended. 3. Prominent loops of small bowel with findings of stasis. Findings may be related to constipation an d/or enteritis. 4. Large colonic stool burden. Signer Name: Avel Sullivan MD Signed: 07/04/2022 12:07 PM Workstation Name: [email or web address]
[2022-07-04 14:02] VITALS: BP 143/77
== END 2022-07-04 14:02 | disposition home or self-care (01) ==
LOC: ED 03:10
DX: N41.9 Inflammatory disease of prostate, unspecified (principal); R10.30 Lower abdominal pain, unspecified; N28.1 Cyst of kidney, acquired; I10 Essential (primary) hypertension; G43.909 Migraine, unspecified, not intractable, without status migrainosus; Z86.73 Personal history of transient ischemic attack (TIA), and cerebral infarction without residual deficits
CPT/HCPCS: 36415; 74018; 74177; 80053; 81001; 83690; 85025; 96361; 96374; 96375; 99284; J2270; J2405; J7030; Q9967